=== PATIENT | female | born 1950 | race Hispanic/Latino ===

== ENCOUNTER 2016-09-28 03:17 | Emergency (ER) | payer BC ==
[2016-09-28 03:26] VITALS: BMI 29.1
[2016-09-28 03:35] VITALS: TEMP 98.7
--- NOTE | 2016-09-28 03:42 | ED PDOC ---
Arrival/HPI - General Chief Complaint: Chest Pain Time Seen by Provider: 09/28/16 03:20 - History of Present Illness Narrative History of Present Illness (Text): 09/28/16 04:15 65 year old F w/ Past medical history of anxiety and GERD presents to the emergency depart complaining of chest pain. Pt states pain began ~0230 this morning. Pain described as intense, burning, stabbing sub-xyphoid. Pt reports R- sided jaw pain, which woke pt from sleep, 20-30mins before onset of chest pain. Pain associated w/ lightheadedness, sweating, and nausea but no vomiting. Pain has been intensifying since onset w/ radiation around L-side into back. Pt admits to similar episodes in the past, the last occurring ~1yr ago. Pt has recently her intake of NSAIDs due to an arthritis flair. (Kianna Navarrete) Past Medical History - Provider Review Nursing Documentation Reviewed: Yes - Tetanus Immunization Tetanus Immunization: Unknown - Reproductive Menopause: Yes - Gastrointestinal Hx Gastroesophageal Reflux: Yes - Psychiatric Hx Depression: Yes Hx Emotional Abuse: No Hx Panic Disorder: Yes Hx Physical Abuse: No Hx Substance Use: No - Surgical History Hx Appendectomy: Yes Hx Cholecystectomy: Yes - Anesthesia Hx Anesthesia: Yes Hx Anesthesia Reactions: No Hx Malignant Hyperthermia: No - Suicidal Assessment Feels Threatened In Home Enviroment: No Family/Social History Family/Social History: No Known Family HX Smoking Status: Heavy Smoker > 10 Cigarettes Daily Hx Alcohol Use: No Hx Substance Use: No Allergies/Home Meds Allergies/Adverse Reactions: Allergies erythromycin base Adverse Reaction (Verified 09/28/16 03:26) ANAPHYLAXIS Penicillins Adverse Reaction (Verified 09/28/16 03:26) RASH Review of Systems - Physician Review All systems were reviewed & negative as marked: Yes - Review of Systems Eyes: absent: Vision Changes Respiratory: absent: SOB Physical Exam Temperature: Afebrile Blood Pressure: Hypertensive Pulse: Tachycardic Respiratory Rate: Normal Appearance: Positive for: Non-Toxic Pain Distress: Mild Mental Status: Positive for: Alert and Oriented X 3 - Systems Exam Head: Present: Atraumatic, Normocephalic Pupils: Present: PERRL Extroacular Muscles: Present: EOMI Mouth: Present: Moist Mucous Membranes Respiratory/Chest: Present: Clear to Auscultation, Good Air Exchange, Tender to Palpation (L 4th ICS), Other (pain relived w/ subxyphoid palpation). No: Respiratory Distress, Accessory Muscle Use Cardiovascular: Present: Regular Rate and Rhythm, Normal S1, S2. No: Murmurs Abdomen: Present: Normal Bowel Sounds. No: Tenderness, Distention, Peritoneal Signs Back: Present: Normal Inspection Lower Extremity: Present: Normal Inspection. No: Edema Neurological: Present: GCS=15, Speech Normal Skin: Present: Warm, Dry, Normal Color Psychiatric: Present: Alert, Oriented x 3, Normal Affect, Anxious Medical Decision Making - EKG Interpretation Interpreted by ED Physician: Yes Type: 12 lead EKG ED Course and Treatment: 09/28/16 04:29 65 year old F w/ CP r/o ACS vs gastritis - CBC, CMP, Mg, Urinalysis - CXR - EKG - ASA 325 - Xanax 0.5mg - Protonix 40mg 09/28/16 04:47 Pain subsiding after Xanax and protonix. Discussed the need for serial Troponins to completely r/o ACS. Pt demonstrated understanding but elected to go home and follow up with PMD and drum saw operator. Pt asking for 3days of Xanax to go home with. No listings in the online drug registry. (Kianna Navarrete) 09/28/16 05:16 Seen and examined with resident. 65 y/o F c history of anxiety/GERD p/w chest pain similar to GERD. Symptoms resolved after Xanax and protonix, can't rule out ACS but patient wished to go home and refused further observation. (Toan Lofton) - Lab Interpretations Lab Results: 09/28/16 03:57 09/28/16 03:57 Lab Results 09/28/16 04:35: Urine Color Light yellow, Urine Appearance Clear, Urine pH 6.0, Ur Specific [place] 1.015, Urine Protein Negative, Urine Glucose (UA) Negative, Urine Ketones Negative, Urine Blood Negative, Urine Nitrate Negative, Urine Bilirubin Negative, Urine Urobilinogen 0.2, Ur Leukocyte Esterase Negative 09/28/16 03:57: Sodium 137, Potassium 4.3, Chloride 105, Carbon Dioxide 23, Anion Gap 13, BUN 17, Creatinine 0.8, Est GFR ( Amer) > 60, Est GFR (Non- Af Amer) > 60, Random Glucose 124 H, Calcium 9.3, Magnesium 1.8, Total Bilirubin 0.6, AST 23, ALT 30, Alkaline Phosphatase 81, Lactate Dehydrogenase 347, Total Creatine Kinase 58, Troponin I < 0.01, Total Protein 7.3, Albumin 4.1 , Globulin 3.2, Albumin/Globulin Ratio 1.3 09/28/16 03:57: WBC 8.9, RBC 4.49, Hgb 14.2, Hct 40.5, MCV 90.2, MCH 31.6, MCHC 35.1, RDW 13.6, Plt Count 270, MPV 8.9, Gran % 61.3, Lymph % (Auto) 30.7, [place] % (Auto) 6.3 H, Eos % (Auto) 1.5, Baso % (Auto) 0.2, Gran # 5.48, Lymph # 2.7, Sab[place] # 0.6, Eos # 0.1, Baso # 0.02 - RAD Interpretation Narrative RAD Interpretations (Text): 09/28/16 04:31 CXR no active disease as interpreted by me (Kianna Navarrete) Radiology Orders: 09/28/16 03:42 CHEST PORTABLE [RAD] Stat - EKG Interpretation EKG Interpretation (Text): 09/28/16 04:30 rate 101, NST, no axis rotation or deviation (Kianna Navarrete) - Medication Orders Current Medication Orders: Discontinued Medications Alprazolam (Xanax) 0.5 mg PO STAT STA PRN Reason: Protocol Stop: 09/28/16 04:07 Last Admin: 09/28/16 04:25 Dose: 0.5 mg Aspirin (Aspirin) 325 mg PO STAT STA Stop: 09/28/16 03:43 Last Admin: 09/28/16 04:02 Dose: 325 mg Pantoprazole Sodium (Protonix Inj) 40 mg IVP STAT STA Stop: 09/28/16 04:07 Last Admin: 09/28/16 04:25 Dose: 40 mg Disposition/Present on Arrival - Present on Arrival Any Indicators Present on Arrival: No History of DVT/PE: No History of Uncontrolled Diabetes: No Urinary Catheter: No History of Decub. Ulcer: No History Surgical Site Infection Following: None - Disposition Have Diagnosis and Disposition been Completed?: Yes Disposition Time: 04:36 - Disposition Diagnosis: Chest pain Disposition: HOME/ ROUTINE Condition: STABLE Discharge Instructions (ExitCare): Chest Pain (ED) Prescriptions: Alprazolam [Xanax] 0.5 mg PO Q12H #3 tab
[2016-09-28 04:00] LABS: ADD MANUAL DIFF? NO
[2016-09-28 04:02] LABS: BASO # 0.02 K/mm3 (0.0-2.0); BASO % 0.2 % (0.0-3.0); EOS # 0.1 (0.0-0.7); EOS % 1.5 % (1.5-5.0); GRAN # 5.48 (1.4-6.5); GRAN % 61.3 % (50.0-68.0); HEMATOCRIT 40.5 % (36.0-48.0); LYMPH # 2.7 (1.2-3.4); LYMPH % 30.7 % (22.0-35.0); MEAN CELL VOLUME 90.2 fL (80.0-105.0); MEAN CORPUSCULAR HEMOGLOBIN 31.6 pg (25.0-35.0); MEAN CORPUSCULAR HGB CONC 35.1 g/dl (31.0-37.0); MEAN PLATELET VOLUME 8.9 fl (7.0-11.0); MONO # 0.6 (0.1-0.6); MONO % 6.3 % (1.0-6.0); PLATELET COUNT 270 10^3/uL (120.0-450.0); RED CELL DISTRIBUTION WIDTH 13.6 % (11.5-14.5); WHITE BLOOD COUNT 8.9 10^3/ul (4.5-11.0)
[2016-09-28 04:12] LABS: ALB/GLOB RATIO 1.3 (1.1-1.8); ALKALINE PHOSPHATASE 81 U/L (38-133); ALT/SGPT 30 U/L (7-56); AST/SGOT 23 U/L (15-39); BILIRUBIN,TOTAL 0.6 mg/dL (0.2-1.3); BLOOD UREA NITROGEN 17 mg/dL (7-21); CALCIUM 9.3 mg/dL (8.4-10.5); CARBON DIOXIDE 23 mmol/L (21-33); CHLORIDE 105 mmol/L (98-107); GFR AFRICAN-AMERICAN > 60; GLUCOSE,RANDOM 124 mg/dL (70-110); POTASSIUM 4.3 mmol/L (3.6-5.0); SODIUM 137 mmol/L (132-148); TOTAL PROTEIN 7.3 g/dL (5.8-8.3)
[2016-09-28 04:13] LABS: MAGNESIUM 1.8 mg/dL (1.7-2.2)
[2016-09-28 04:27] LABS: TROPONIN I < 0.01 ng/mL
[2016-09-28 04:39] LABS: URINE BILIRUBIN NEGATIVE (NEGATIVE); URINE BLOOD NEGATIVE (NEGATIVE); URINE GLUCOSE (UA) NEGATIVE (NEGATIVE); URINE KETONE NEGATIVE (NEGATIVE); URINE LEUKOCYTE ESTERASE NEGATIVE Leu/uL (NEGATIVE); URINE PROTEIN NEGATIVE mg/dL (<30 mg/dL); URINE UROBILINOGEN 0.2 E.U./dL (<1 E.U./dL)
[2016-09-28 04:40] LABS: URINE APPEARANCE CLEAR (CLEAR); URINE COLOR LIGHT YELLOW (YELLOW)
[2016-09-28 05:06] VITALS: BP 144/82; PULSE 87; RESP 17; O2SAT 96
--- NOTE | 2016-09-28 15:48 | CARD ---
APPROVED REPORT EKG Measurement Heart [id number] [place] [id number] [id number] <Conclusion> Sinus tachycardia Possible Left atrial enlargement Possible Inferior infarct, age undetermined Abnormal ECG
--- NOTE | 2016-09-29 08:11 | RAD ---
HISTORY: chest pain COMPARISON: No prior. FINDINGS: LUNGS: No active pulmonary disease. PLEURA: No significant pleural effusion identified, no pneumothorax apparent. CARDIOVASCULAR: Normal. OSSEOUS STRUCTURES: No significant abnormalities. VISUALIZED UPPER ABDOMEN: Normal. OTHER FINDINGS: None. IMPRESSION: No active disease.
== END 2016-09-28 04:58 | disposition home or self-care (01) ==
LOC: ED 03:17
DX: R07.9 Chest pain, unspecified (principal)
CPT/HCPCS: 71010; 80053; 81003; 82550; 83615; 83735; 84484; 85025; 93005; 96374; 99284; C9113

== ENCOUNTER 2018-04-15 06:30 | Day surgery (SDC) | payer MEDICARE ==
[2018-04-13 17:05] VITALS: BMI 31.4
[2018-04-15] MEDS ORDERED: Propofol 10 mg/ml Inj (20 ML) ONE (08:07)
[2018-04-15] MEDS ORDERED: Sodium Chloride 0.9% 1,000 ML IV SCH (09:15)
[2018-04-15 09:43] VITALS: BP 139/85; PULSE 82; RESP 16; TEMP 98; O2SAT 99
== END 2018-04-15 10:43 | disposition home or self-care (01) ==
LOC: ENDO 06:30
PROVIDERS: ATTEND Specialist
DX: Z12.11 Encounter for screening for malignant neoplasm of colon (principal); D12.3 Benign neoplasm of transverse colon; K26.9 Duodenal ulcer, unspecified as acute or chronic, without hemorrhage or perforation; K31.7 Polyp of stomach and duodenum; K21.9 Gastro-esophageal reflux disease without esophagitis; K44.9 Diaphragmatic hernia without obstruction or gangrene; K57.30 Diverticulosis of large intestine without perforation or abscess without bleeding; K64.8 Other hemorrhoids; K29.50 Unspecified chronic gastritis without bleeding

== ENCOUNTER 2018-05-14 04:09 | Inpatient (IN) | payer MEDICARE ==
[2018-05-14] MEDS ORDERED: Pantoprazole 40 MG in Sodium Chloride 0.9% 100 ML IV STA (04:43)
--- NOTE | 2018-05-14 04:43 | ED PDOC ---
Arrival/HPI - General Chief Complaint: Abdominal Pain Time Seen by Provider: 05/14/18 04:35 Historian: Patient - History of Present Illness Narrative History of Present Illness (Text): 05/14/18 04:42 Radha A Friend is a 67 year old female, whose past medical history includes GERD, peptic ulcer disease, and cholecystectomy, who presents to the emergency department complaining of abdominal pain. Patient states she woke up tonight with RUQ radiating to chest, back, and arms. Patient also reports she has been belching frequently throughout the night. Patient notes she has experienced similar episodes in the past, for which she was advised to take Gas-ex by her airplane and engine inspector, however patient denies any significant improvement. Patient recently underwent endoscopy and colonoscopy and had 2 polyps removed. Patient notes symptoms are currently improving. Patient denies any fever, chills, chest pain, shortness of breath, nausea, vomiting, diarrhea, urinary symptoms, headache, dizziness, or any other complaints. PMD: Dr. Rain Symptom Onset: Gradual Symptom Course: Unchanged Activities at Onset: Light Context: Home Past Medical History - Provider Review Nursing Documentation Reviewed: Yes - Tetanus Immunization Tetanus Immunization: Unknown - Cardiac Hx Pacemaker: No - Hematological/Oncological Hx Blood Transfusions: No Hx Blood Transfusion Reaction: No - Musculoskeletal/Rheumatological Hx Musculoskeletal Disorders: Yes (RIGHT KNEE) Hx Spinal Stenosis: Yes - Gastrointestinal Hx Gastrointestinal Disorders: Yes Hx Gall Bladder Disease: Yes Hx Gastroesophageal Reflux: Yes - Psychiatric Hx Psychophysiologic Disorder: Yes Hx Emotional Abuse: No Hx Panic Disorder: Yes Hx Physical Abuse: No Hx Substance Use: No - Surgical History Hx Appendectomy: Yes Hx Cholecystectomy: Yes - Anesthesia Hx Anesthesia Reactions: No Hx Malignant Hyperthermia: No - Suicidal Assessment Feels Threatened In Home Enviroment: No Family/Social History - Physician Review Nursing Documentation Reviewed: Yes Family/Social History: Unknown Family HX Smoking Status: Heavy Smoker > 10 Cigarettes Daily Hx Alcohol Use: Yes (RARE SOCIAL OCCASSIONS) Frequency of alcohol use: Socially Hx Substance Use: No Allergies/Home Meds Allergies/Adverse Reactions: Allergies doxycycline [From Vibramycin] Allergy (Severe, Verified 04/13/18 16:49) IMPENDING DOOM erythromycin base Allergy (Severe, Verified 04/13/18 16:49) ANAPHYLAXIS FISH Allergy (Severe, Verified 04/13/18 16:49) SWELLING Penicillins Adverse Reaction (Verified 09/28/16 03:26) RASH Home Medications: Home Meds Medication Instructions Recorded Confirmed Alprazolam [Xanax] 0.5 mg PO TID 09/19/17 05/14/18 Omeprazole 40 mg PO DAILY 04/15/18 05/14/18 Simethicone [Gas-X Extra Strength] 125 mg PO PRN PRN 05/14/18 05/14/18 Aspirin [Ecotrin] 81 mg PO DAILY 05/15/18 05/15/18 Atorvastatin [Lipitor] 40 mg PO ACD 05/15/18 05/15/18 Clopidogrel [Plavix] 75 mg PO DAILY 05/15/18 05/15/18 Lisinopril [Zestril] 2.5 mg PO DAILY 05/15/18 05/15/18 Pantoprazole Sodium [Protonix] 40 mg PO ACB 05/15/18 05/15/18 Review of Systems - Physician Review All systems were reviewed & negative as marked: Yes - Review of Systems Constitutional: Normal. absent: Fevers Eyes: Normal ENT: Normal Respiratory: Normal Cardiovascular: Normal Gastrointestinal: Normal Genitourinary Female: Normal Musculoskeletal: Normal Skin: Normal Neurological: Normal Endocrine: Normal Hemo/Lymphatic: Normal Psychiatric: Normal Physical Exam Vital Signs Reviewed: Yes Vital Signs Temp Pulse Resp BP Pulse Ox 05/14/18 04:36 97.4 F L 100 H 18 133/79 98 Temperature: Afebrile Blood Pressure: Normal Pulse: Regular Respiratory Rate: Normal Appearance: Positive for: Well-Appearing, Non-Toxic, Comfortable Pain Distress: None Mental Status: Positive for: Alert and Oriented X 3 - Systems Exam Head: Present: Atraumatic, Normocephalic Pupils: Present: PERRL Extroacular Muscles: Present: EOMI Conjunctiva: Present: Normal Mouth: Present: Moist Mucous Membranes Neck: Present: Normal Range of Motion Respiratory/Chest: Present: Clear to Auscultation, Good Air Exchange. No: Respiratory Distress, Accessory Muscle Use Cardiovascular: Present: Regular Rate and Rhythm, Normal S1, S2. No: Murmurs Abdomen: No: Tenderness, Distention, Peritoneal Signs Back: Present: Normal Inspection Upper Extremity: Present: Normal Inspection. No: Cyanosis, Edema Lower Extremity: Present: Normal Inspection. No: Edema Neurological: Present: GCS=15, CN II-XII Intact, Speech Normal Skin: Present: Warm, Dry, Normal Color. No: Rashes Psychiatric: Present: Alert, Oriented x 3, Normal Insight, Normal Concentration Medical Decision Making ED Course and Treatment: 05/14/18 04:42 Impression: 67 year old female complaining of RUQ pain radiating to chest and back. Plan: -- EKG -- CXR -- Labs, cardiac enzymes, amylase, lipase -- UA -- IV fluids -- Pepcid -- Reassess and disposition Prior Visits: Notes and results from previous visits were reviewed. Progress Notes: Reviewed EKG, NSR at 100 bpm. Ischemic changes in leads V2, V3, V4. 05/14/18 04:58 CXR reviewed, shows no acute processes. 05/14/18 05:43 Labs reviewed, troponin: 1.13. Aspirin and Nitroglycerin ordered. 05/14/18 05:[address] Powers, covering for Dr. Beckham, who is aware and agrees with plan. Requests dissection protocol CTA prior to taking pt to company laborer. 05/14/18 05:[address] Rain, who is aware and agrees with plan. Accepts pt in to her service. - Transfer of Care Patient signed out to Dr:: reyes ct result icu and iv heparin - Scribe Statement The provider has reviewed the documentation as recorded by the Ramona Simmons Provider Scribe Attestation: All medical record entries made by the Scribe were at my direction and personally dictated by me. I have reviewed the chart and agree that the record accurately reflects my personal performance of the history, physical exam, medical decision making, and the department course for this patient. I have also personally directed, reviewed, and agree with the discharge instructions and disposition. Disposition/Present on Arrival - Present on Arrival Any Indicators Present on Arrival: No History of DVT/PE: No History of Uncontrolled Diabetes: No Urinary Catheter: No History of Decub. Ulcer: No History Surgical Site Infection Following: None - Disposition Have Diagnosis and Disposition been Completed?: Yes Diagnosis: Non-Q wave myocardial infarction Disposition: HOSPITALIZED Disposition Time: 07:00 Condition: FAIR
[2018-05-14 05:01] LABS: BASO # 0.02 K/mm3 (0.0-2.0); BASO % 0.2 % (0.0-3.0); EOS # 0.1 (0.0-0.7); EOS % 0.6 % (1.5-5.0); GRAN # 8.72 (1.4-6.5); GRAN % 77.7 % (50.0-68.0); LYMPH # 1.7 (1.2-3.4); LYMPH % 15.3 % (22.0-35.0); MEAN CORPUSCULAR HEMOGLOBIN 31.2 pg (25.0-35.0); MEAN CORPUSCULAR HGB CONC 33.9 g/dl (31.0-37.0); MEAN PLATELET VOLUME 9.1 fl (7.0-11.0); MONO # 0.7 (0.1-0.6); MONO % 6.2 % (1.0-6.0); RBC 4.49 10^6/uL (3.5-6.1); RED CELL DISTRIBUTION WIDTH 12.9 % (11.5-14.5); WHITE BLOOD COUNT 11.2 10^3/uL (4.5-11.0)
[2018-05-14 05:09] LABS: ALB/GLOB RATIO 1.4 (1.1-1.8); ALBUMIN 4.5 g/dL (3.0-4.8); ALT/SGPT 30 U/L (7-56); AMYLASE 74 U/L (35-125); AST/SGOT 42 U/L (14-36); BLOOD UREA NITROGEN 14 mg/dL (7-21); CALCIUM 9.4 mg/dL (8.4-10.5); GFR NON-AFRICAN AMERICAN > 60; LIPASE 215 U/L (23-300)
[2018-05-14 05:18] LABS: INR 0.99; PARTIAL THROMBOPLASTIN TIME 28.4 Seconds (25.1-36.5); PROTHROMBIN TIME 11.3 SECONDS (9.4-12.5)
[2018-05-14] MEDS ORDERED: Nitroglycerin 2% Ointment Foilpak UD TOP STA (05:40)
[2018-05-14 05:41] LABS: CK MB% 4.9 % (2.5-3.0); CK-MB 11.5 ng/mL (0.0-3.6); TROPONIN I 1.13 ng/mL
[2018-05-14 05:46] LABS: URINE BILIRUBIN NEGATIVE (NEGATIVE); URINE BLOOD NEGATIVE (NEGATIVE); URINE GLUCOSE (UA) NEGATIVE (NEGATIVE); URINE LEUKOCYTE ESTERASE NEGATIVE Leu/uL (NEGATIVE); URINE PROTEIN NEGATIVE mg/dL (<30 mg/dL); URINE UROBILINOGEN 0.2 E.U./dL (<1 E.U./dL)
[2018-05-14 05:50] LABS: URINE APPEARANCE CLEAR (CLEAR); URINE COLOR YELLOW (YELLOW)
[2018-05-14] MEDS ORDERED: Aspirin 325 mg EC Tablets PO STA (05:51)
[2018-05-14] MEDS ORDERED: Sodium Chloride 0.9% 1,000 ML IV SCH ×2 (06:15→11:00)
--- NOTE | 2018-05-14 07:02 | ED PDOC ---
Physical Exam Vital Signs Reviewed: Yes Vital Signs Temp Pulse Resp BP Pulse Ox 05/14/18 05:45 94 H 16 129/76 97 05/14/18 04:36 97.4 F L 100 H 18 133/79 98 Temperature: Afebrile Blood Pressure: Normal Pulse: Tachycardic Respiratory Rate: Normal Mental Status: Positive for: Alert and Oriented X 3 Medical Decision Making ED Course and Treatment: 05/14/18 06:[address] Cosby with CT a/p pending. She had radiating back pain with associated belching resulting elevated troponins. Dr. Powers(cardiology) will perform cardiac cath today after discussing the case with previous Emergency department provider. Consult to ICU once CT results are back. She will have heparin started. 05/14/18 07:[address] Bennett(intensvist) who accepts patient into ICU and will endorse patient to incoming team. - Lab Interpretations Lab Results: PT 11.3 SECONDS (9.4-12.5) 05/14/18 04:49 INR 0.99 05/14/18 04:49 APTT 28.4 Seconds (25.1-36.5) 05/14/18 04:49 Troponin I 1.13 ng/mL H* D 05/14/18 04:49 Total Bilirubin 0.5 mg/dL (0.2-1.3) 05/14/18 04:49 AST 42 U/L (14-36) H 05/14/18 04:49 ALT 30 U/L (7-56) 05/14/18 04:49 Alkaline Phosphatase 114 U/L (38-126) 05/14/18 04:49 Total Protein 7.8 g/dL (5.8-8.3) 05/14/18 04:49 Albumin 4.5 g/dL (3.0-4.8) 05/14/18 04:49 Globulin 3.3 gm/dL 05/14/18 04:49 Albumin/Globulin Ratio 1.4 (1.1-1.8) 05/14/18 04:49 Amylase 74 U/L (35-125) 05/14/18 04:49 Lipase 215 U/L (23-300) 05/14/18 04:49 Urine Color Yellow (YELLOW) 05/14/18 05:28 Urine Appearance Clear (CLEAR) 05/14/18 05:28 Urine pH 6.0 (4.7-8.0) 05/14/18 05:28 Ur Specific [place] 1.025 (1.005-1.035) 05/14/18 05:28 Urine Protein Negative mg/dL (<30 mg/dL) 05/14/18 05:28 Urine Glucose (UA) Negative mg/dL (NEGATIVE) 05/14/18 05:28 Urine Ketones Negative mg/dL (NEGATIVE) 05/14/18 05:28 Urine Blood Negative (NEGATIVE) 05/14/18 05:28 Urine Nitrate Negative (NEGATIVE) 05/14/18 05:28 Urine Bilirubin Negative (NEGATIVE) 05/14/18 05:28 Urine Urobilinogen 0.2 E.U./dL (<1 E.U./dL) 05/14/18 05:28 Ur Leukocyte Esterase Negative Ernesto/uL (NEGATIVE) 05/14/18 05:28 I have reviewed the lab results: Yes - RAD Interpretation Narrative RAD Interpretations (Text): 05/14/18 08:30 CTA of Chest Abdomen and Pelvis reviewed by radiologist, shows: FINDINGS: Mild cardiomegaly. Normal enhancement of the main pulmonary artery and right and left pulmonary arteries. Normal enhancement of the bilateral peripheral pulmonary arteries. There is no demonstrated pulmonary embolism. Normal thoracic aorta and visualized great vessels. There is no demonstrated aortic dissection. Normal pericardium. Normal mediastinum. Normal hilar regions. Normal visualized trachea and bronchi. Bilateral basilar atelectatic pulmonary changes The remaining lungs are well expanded. Normal remaining pulmonary parenchyma. Normal pleura. Normal chest wall structures. Moderate diffuse spondylosis. Moderate sliding hiatal hernia. Normal liver. Cholecystectomy and nondilated extrahepatic biliary system. Normal spleen. Normal pancreas. Diffuse nodularity of the left adrenal gland. Normal size of the right kidney. There is no right renal mass. There are no right renal calculi. There is no right hydronephrosis. Normal visualized right ureter. Normal size of the left kidney. There is no left renal mass. There are no left renal calculi. There is no left hydronephrosis. Normal visualized left ureter. Normal visualized stomach. Normal small intestine. Uncomplicated diverticulosis of the colon. The appendix is visualized and appears normal. There is no demonstrated peritoneal fluid. Calcified atheromatous plaques in abdominal aorta. Normal inferior vena cava. Normal retroperitoneum. Normal urinary bladder. There is no pelvic mass lesion or lymphadenopathy. There is no pelvic fluid. 1.3 cm benign chronic sebaceous cyst of the anterior abdominal wall. Normal osseous structures. IMPRESSION: No demonstrated pulmonary embolism or arterial dissection. Moderate sliding hiatal hernia. Uncomplicated diverticulosis. Radiology Orders: 05/14/18 04:43 CHEST PORTABLE [RAD] Stat 05/14/18 05:58 ANGIOGRAPHY DISECTION PROTOCOL [CT] Stat Supervisor [employer]: Radiologist - Medication Orders Current Medication Orders: Sodium Chloride (Sodium Chloride 0.9%) 1,000 mls @ 80 mls/hr IV .[id number] MELISSA Last Admin: 05/14/18 06:22 Dose: 80 mls/hr eMAR Start Stop Document 05/14/18 06:22 CNR (Rec: 05/14/18 06:22 CNR [id number]) Intravenous Solution Start Date 05/14/18 Start Time 06:22 Discontinued Medications Aspirin (Ecotrin) 325 mg PO STAT STA Stop: 05/14/18 05:52 Last Admin: 05/14/18 06:04 Dose: 325 mg Famotidine (Pepcid) 20 mg IVP STAT STA Stop: 05/14/18 04:44 Last Admin: 05/14/18 05:01 Dose: 20 mg IVP Administration Document 05/14/18 05:01 CNR (Rec: 05/14/18 05:01 CNR [id number]) Charges for Administration # of IVP Administrations 1 Pantoprazole Sodium 40 mg/ (Sodium Chloride) 100 mls @ 400 mls/hr IV STAT STA Stop: 05/14/18 04:57 Last Admin: 05/14/18 04:59 Dose: 400 mls/hr eMAR Start Stop Document 05/14/18 04:59 CNR (Rec: 05/14/18 05:01 CNR [id number]) Intravenous Solution Start Date 05/14/18 Start Time 05:00 End Date 05/14/18 End time 05:15 Total Infusion Time 15 Lorazepam (Ativan) 0.5 mg PO ONCE ONE; Protocol Stop: 05/14/18 06:29 Last Admin: 05/14/18 06:36 Dose: 0.5 mg Nitroglycerin (Nitro-Bid 2% Oint) 1 ea TOP ONCE STA Stop: 05/14/18 05:41 Last Admin: 05/14/18 06:03 Dose: 1 ea Disposition/Present on Arrival - Present on Arrival History of DVT/PE: No History of Uncontrolled Diabetes: No Urinary Catheter: No History of Decub. Ulcer: No History Surgical Site Infection Following: None - Disposition
[2018-05-14] MEDS ORDERED: Heparin25000 units/250ml 1/2NS 25,000 UNITS/250 ML BAG IV SCH ×2 (07:15→08:45)
--- NOTE | 2018-05-14 09:27 | RAD ---
Date of service: 05/14/2018 HISTORY: epigastric pain COMPARISON: 09/28/2016 FINDINGS: LUNGS: No active pulmonary disease. PLEURA: No significant pleural effusion identified, no pneumothorax apparent. CARDIOVASCULAR: No aortic atherosclerotic calcification present. Normal cardiac size. No pulmonary vascular congestion. OSSEOUS STRUCTURES: No significant abnormalities. VISUALIZED UPPER ABDOMEN: Normal. OTHER FINDINGS: None. IMPRESSION: No active disease.
--- NOTE | 2018-05-14 09:55 | CT ---
PROCEDURE: CT Angiography Chest, Abdomen and Pelvis with and without intravenous contrast HISTORY: r/o dissection COMPARISON: None. TECHNIQUE: Contiguous axial images of the chest, abdomen and pelvis were obtained in the phase of aortic enhancement. A noncontrast enhanced CT of the chest was also obtained to evaluate for possible intramural thrombus. Coronal and sagittal reformats were generated. IV dose administered: 150 cc of Omni 350 Radiation dose: Total exam DLP = 1302.86 mGy-cm. This CT exam was performed using one or more of the following dose reduction techniques: Automated exposure control, adjustment of the mA and/or kV according to patient size, and/or use of iterative reconstruction technique. FINDINGS: CT ANGIOGRAPHY OF THE CHEST WITH & WITHOUT CONTRAST: ABDOMINAL AORTA:: No evidence of aortic dissection or aneurysm no evidence of pulmonary embolus AORTA (CHEST AND ABDOMEN): The thoracic and abdominal aorta are unremarkable, without aneurysm, dissection or rupture. No intramural thrombus identified in the thoracic aorta on the non-contrast ct of the chest. The celiac axis, superior mesenteric artery, inferior mesenteric artery and the renal arteries are widely patent. The pelvic arteries are unremarkable. LUNGS: Clear. No nodule, mass or consolidation. MEDIASTINUM: Unremarkable. Normal caliber aorta and pulmonary arterial trunk. No aortic dissection. Normal size heart. LYMPH NODES: Unremarkable. PLEURA: Unremarkable. No pneumothorax. No pleural fluid. BONES: Unremarkable. OTHER FINDINGS: None. CT ANGIOGRAPHY OF THE ABDOMEN AND PELVIS WITH CONTRAST: LIVER: Unremarkable. No gross lesion or ductal dilatation. GALLBLADDER AND BILE DUCTS: Gallbladder removed PANCREAS: Unremarkable. No gross lesion or ductal dilatation. SPLEEN: Unremarkable. ADRENALS: Unremarkable. No mass. KIDNEYS AND URETERS: Unremarkable. No hydronephrosis. No solid mass. VASCULATURE: Unremarkable. No aortic aneurysm. Aortic and iliac calcifications are seen STOMACH AND BOWEL: Unremarkable. No obstruction. No gross mural thickening. Mild diverticulosis of the sigmoid colon APPENDIX: Normal appendix. PERITONEUM: Unremarkable. No free fluid. No free air. LYMPH NODES: Unremarkable. No enlarged lymph nodes. BLADDER: Unremarkable. REPRODUCTIVE: Unremarkable. BONES: Multilevel degenerative changes OTHER FINDINGS: The report concurs with the preliminary [facility] report IMPRESSION: No evidence of aortic dissection. No evidence of pulmonary embolism
--- NOTE | 2018-05-14 10:20 | CP.PCM.CON ---
<Jesse Benitez - Last Filed: 05/14/18 11:01> History of Present Illness - History of Present Illness History of Present Illness: Jesse Benitez Internal Medicine Resident- Consult Note on Behalf of Critical Care Team Subjective: CC: Abdominal Pain HPI: Patient is a 67 year old female with a past medical history of hypertension, hyperlipidemia, gastric polyps, colonic polyps, hiatal hernia, diverticulosis, internal hemorrhoids, duodenal ulcers, and panic attacks who was admitted for evaluation and treatment of abdominal pain which began without a provoking event. The abdominal pain was characterized as being a dull aching sensation, which originated and remained localized in the epigastric region. The pain was quantified as a 10/10. Denied associated nausea and vomiting. Patient was found to have positive troponins in the emergency department and was diagnosed with an NSTEMI. Patient felt anxious and experienced chest pressure after learning of diagnosis. ICU team was consulted for further management. Patient seen and examined at bedside. No acute events since admission. Patient states abdominal pain has significantly improved relative to baseline. States chest pressure has resolved. Denies fever, chills, SOB at rest/exertion, nausea, vomiting, diarrhea , constipation, and urinary symptoms. 12 point ROS negative except as indicated in HPI Past medical history: hypertension, hyperlipidemia, gastric polyps, colonic polyps, hiatal hernia, diverticulosis, internal hemorrhoids, duodenal ulcers, and panic attacks Past surgical history: cholecystectomy, appendectomy Allergies: doxycycline, erythromycin, FISH, penicillins Social History: social ETOH use, admits to active tobacco use 1ppd for approximately 45 years, denies illicit drug use Family Hx: mother- normo pressure hydrocephalus, diabetes, htn; father- MO at 51 years old Medications: please see MAR Physical Examination: - Constitutional Appears: No acute distress - Head Exam Head Exam: ATRAUMATIC, NORMAL INSPECTION, NORMOCEPHALIC - Eye Exam Eye Exam: PERRL - ENT Exam ENT Exam: Mucous Membranes Moist - Respiratory Exam Respiratory Exam: CTA bilaterally - Cardiovascular Exam Cardiovascular Exam: RRR, REGULAR RHYTHM - GI/Abdominal Exam GI & Abdominal Exam: Normal Bowel Sounds, Soft. absent: Tenderness - Extremities Exam Extremities exam: no clubbing, no cyanosis - Neurological Exam Neurological exam: AAO x 3, responds to verbal stimuli, follows commands, moves extremities past midline - Skin Skin Exam: Dry, Intact Assessment and Plan: Patient is a 67 year old female with a past medical history of hypertension, hyperlipidemia, gastric polyps, colonic polyps, hiatal hernia, peptic ulcer disease, and panic attacks who was admitted for evaluation and treatment of abdominal pain. Found to have NSTEMI. Transferred to ICU for further management. Neuro: - AAO x 3 Cardiovascular: NSTEMI, Hx of HTN, Hx of HPL - 05/14/2017 EKG- sinus rhythm with PACs with aberrant conduction, possible left atrial enlargement HR 98bpm, QTc 474ms - 05/14/2017 CT Angiography Chest, Abdomen and Pelvis with and without intravenous contrast-No evidence of aortic dissection. No evidence of pulmonary embolism - scheduled for cardiac catherization with Dr. Powers on 05/14/2017 - Continue heparin drip - increase IVF NS to 200cc/hr due to contrast load from CTA and expected contrast use during cardiac catherization - N acteylcysteine 600ml x 1 for renal protection - keep MAP > 65 Pulm: Active Tobacco Abuse - tobacco cessation advised - keep SaO2 > 90% GI Abdominal Pain, Hx of gastric polyps, colonic polyps, hiatal hernia, diverticul osis, internal hemorrhoids, duodenal ulcers - improving - no acute intervention - protonix 40 IV daily for prophylaxis Heme DVT PPx - on heparin drip Patient case discussed with and plan approved by attending physician, Dr. Celi Mcmullen. Past Patient History - Tetanus Immunizations Tetanus Immunization: Unknown - Past Social History Smoking Status: Heavy Smoker > 10 Cigarettes Daily - CARDIAC Hx Pacemaker: No - HEMATOLOGICAL/ONCOLOGICAL Hx Blood Transfusions: No Hx Blood Transfusion Reaction: No - MUSCULOSKELETAL/RHEUMATOLOGICAL Hx Musculoskeletal Disorders: Yes (RIGHT KNEE) Hx Spinal Stenosis: Yes - GASTROINTESTINAL Hx Gastrointestinal Disorders: Yes Hx Gall Bladder Disease: Yes Hx Gastroesophageal Reflux: Yes - PSYCHIATRIC Hx Psychophysiologic Disorder: Yes Hx Emotional Abuse: No Hx Panic Symptoms: Yes Hx Physical Abuse: No Hx Substance Use: No - SURGICAL HISTORY Hx Appendectomy: Yes Hx Cholecystectomy: Yes - ANESTHESIA Hx Anesthesia Reactions: No Hx Malignant Hyperthermia: No Meds Allergies/Adverse Reactions: Allergies Allergy/AdvReac Type Severity Reaction Status Date / Time doxycycline [From Vibramycin] Allergy Severe IMPENDING Verified 04/13/18 16:49 DOOM erythromycin base Allergy Severe ANAPHYLAXIS Verified 04/13/18 16:49 FISH Allergy Severe SWELLING Verified 04/13/18 16:49 Penicillins AdvReac RASH Verified 09/28/16 03:26 - Medications Medications: Current Medications Sodium Chloride (Sodium Chloride 0.9%) 1,000 mls @ 80 mls/hr IV .[id number] REPLACED BY [facility] Last Admin: 05/14/18 06:22 Dose: 80 mls/hr Heparin Sodium/Sodium Chloride (Heparin 28281 Units/250ml 1/2 Normal Saline) 25,000 units in 250 mls @ 10.396 mls/hr IV .Q24H REPLACED BY [facility]; Protocol Last Admin: 05/14/18 08:49 Dose: 12 units/kg/hr, 10.396 mls/hr Results - Vital Signs Recent Vital Signs: Last Vital Signs Temp 98 F 05/14/18 08:53 Pulse 80 05/14/18 08:53 Resp 18 05/14/18 08:53 BP 128/77 05/14/18 08:53 Pulse Ox 97 05/14/18 08:53 - Labs Result Diagrams: 05/14/18 04:49 05/14/18 04:49 Labs: Laboratory Results - last 24 hr 05/14/18 05/14/18 05/14/18 04:49 04:49 04:49 WBC 11.2 H RBC 4.49 Hgb 14.0 Hct 41.3 MCV 92.0 MCH 31.2 MCHC 33.9 RDW 12.9 Plt Count 310 MPV 9.1 Gran % 77.7 H Lymph % (Auto) 15.3 L [place] % (Auto) 6.2 H Eos % (Auto) 0.6 L Baso % (Auto) 0.2 Gran # 8.72 H Lymph # (Auto) 1.7 [place] # (Auto) 0.7 H Eos # (Auto) 0.1 Baso # (Auto) 0.02 PT 11.3 INR 0.99 APTT 28.4 Sodium 136 Potassium 4.1 Chloride 105 Carbon Dioxide 22 Anion Gap 13 BUN 14 Creatinine 0.7 Est GFR ( Amer) > 60 Est GFR (Non-Af Amer) > 60 Random Glucose 179 H Calcium 9.4 Total Bilirubin 0.5 AST 42 H ALT 30 Alkaline Phosphatase 114 Lactate Dehydrogenase 539 Total Creatine Kinase 236 H CK-MB (CK-2) 11.5 H CK-MB (CK-2) % 4.9 H Troponin I 1.13 H* D Total Protein 7.8 Albumin 4.5 Globulin 3.3 Albumin/Globulin Ratio 1.4 Amylase 74 Lipase 215 Urine Color Urine Appearance Urine pH Ur Specific [place] Urine Protein Urine Glucose (UA) Urine Ketones Urine Blood Urine Nitrate Urine Bilirubin Urine Urobilinogen Ur Leukocyte Esterase 05/14/18 05:28 WBC RBC Hgb Hct MCV MCH MCHC RDW Plt Count MPV Gran % Lymph % (Auto) [place] % (Auto) Eos % (Auto) Baso % (Auto) Gran # Lymph # (Auto) [place] # (Auto) Eos # (Auto) Baso # (Auto) PT INR APTT Sodium Potassium Chloride Carbon Dioxide Anion Gap BUN Creatinine Est GFR ( Amer) Est GFR (Non-Af Amer) Random Glucose Calcium Total Bilirubin AST ALT Alkaline Phosphatase Lactate Dehydrogenase Total Creatine Kinase CK-MB (CK-2) CK-MB (CK-2) % Troponin I Total Protein Albumin Globulin Albumin/Globulin Ratio Amylase Lipase Urine Color Yellow Urine Appearance Clear Urine pH 6.0 Ur Specific [place] 1.025 Urine Protein Negative Urine Glucose (UA) Negative Urine Ketones Negative Urine Blood Negative Urine Nitrate Negative Urine Bilirubin Negative Urine Urobilinogen 0.2 Ur Leukocyte Esterase Negative <Lenine Mcmullen - Last Filed: 05/14/18 16:40> Meds - Medications Medications: Current Medications Alprazolam (Xanax) 0.5 mg PO TID PRN; Protocol PRN Reason: Anxiety Aspirin (Ecotrin) 81 mg PO DAILY REPLACED BY [facility] Atorvastatin Calcium (Lipitor) 40 mg PO DIN REPLACED BY [facility] Clopidogrel Bisulfate (Plavix) 75 mg PO DAILY REPLACED BY [facility] Sodium Chloride (Sodium Chloride 0.9%) 1,000 mls @ 100 mls/hr IV .Q10H REPLACED BY [facility] Last Admin: 05/14/18 15:24 Dose: 100 mls/hr Lisinopril (Zestril) 2.5 mg PO DAILY REPLACED BY [facility] Metoprolol Tartrate (Lopressor) 25 mg PO BID REPLACED BY [facility] Nicotine (Nicoderm Cq) 1 patch TD DAILY REPLACED BY [facility] Last Admin: 05/14/18 15:23 Dose: 1 patch Pantoprazole Sodium (Protonix Ec Tab) 40 mg PO ACB REPLACED BY [facility] Results - Vital Signs Recent Vital Signs: Last Vital Signs Temp 97.9 F 05/14/18 15:01 Pulse 96 H 05/14/18 15:16 Resp 20 05/14/18 15:16 BP 129/80 05/14/18 15:16 Pulse Ox 94 L 05/14/18 15:16 - Labs Result Diagrams: 05/14/18 04:49 05/14/18 04:49 Labs: Laboratory Results - last 24 hr 05/14/18 05/14/18 05/14/18 04:49 04:49 04:49 WBC 11.2 H RBC 4.49 Hgb 14.0 Hct 41.3 MCV 92.0 MCH 31.2 MCHC 33.9 RDW 12.9 Plt Count 310 MPV 9.1 Gran % 77.7 H Lymph % (Auto) 15.3 L [place] % (Auto) 6.2 H Eos % (Auto) 0.6 L Baso % (Auto) 0.2 Gran # 8.72 H Lymph # (Auto) 1.7 [place] # (Auto) 0.7 H Eos # (Auto) 0.1 Baso # (Auto) 0.02 PT 11.3 INR 0.99 APTT 28.4 Sodium 136 Potassium 4.1 Chloride 105 Carbon Dioxide 22 Anion Gap 13 BUN 14 Creatinine 0.7 Est GFR ( Amer) > 60 Est GFR (Non-Af Amer) > 60 Random Glucose 179 H Calcium 9.4 Total Bilirubin 0.5 AST 42 H ALT 30 Alkaline Phosphatase 114 Lactate Dehydrogenase 539 Total Creatine Kinase 236 H CK-MB (CK-2) 11.5 H CK-MB (CK-2) % 4.9 H Troponin I 1.13 H* D Total Protein 7.8 Albumin 4.5 Globulin 3.3 Albumin/Globulin Ratio 1.4 Triglycerides Cholesterol LDL Cholesterol Direct HDL Cholesterol Amylase 74 Lipase 215 Urine Color Urine Appearance Urine pH Ur Specific [place] Urine Protein Urine Glucose (UA) Urine Ketones Urine Blood Urine Nitrate Urine Bilirubin Urine Urobilinogen Ur Leukocyte Esterase 05/14/18 05/14/18 04:49 05:28 WBC RBC Hgb Hct MCV MCH MCHC RDW Plt Count MPV Gran % Lymph % (Auto) [place] % (Auto) Eos % (Auto) Baso % (Auto) Gran # Lymph # (Auto) [place] # (Auto) Eos # (Auto) Baso # (Auto) PT INR APTT Sodium Potassium Chloride Carbon Dioxide Anion Gap BUN Creatinine Est GFR ( Amer) Est GFR (Non-Af Amer) Random Glucose Calcium Total Bilirubin AST ALT Alkaline Phosphatase Lactate Dehydrogenase Total Creatine Kinase CK-MB (CK-2) CK-MB (CK-2) % Troponin I Total Protein Albumin Globulin Albumin/Globulin Ratio Triglycerides 137 Cholesterol 228 H LDL Cholesterol Direct 164 H HDL Cholesterol 34 Amylase Lipase Urine Color Yellow Urine Appearance Clear Urine pH 6.0 Ur Specific [place] 1.025 Urine Protein Negative Urine Glucose (UA) Negative Urine Ketones Negative Urine Blood Negative Urine Nitrate Negative Urine Bilirubin Negative Urine Urobilinogen 0.2 Ur Leukocyte Esterase Negative Addendum Addendum: 05/14/18 16:37 Patient seen and examined with housestaff agree with resident note above with the following exceptions/additions 67F w/ hypertension, hyperlipidemia, gastric polyps, colonic polyps, hiatal hernia, peptic ulcer disease, came to ED for abdominal pain found to have NSTEMI. EKG shows sinus rhythm with PACs with aberrant condu. CT Angiography Chest shows no evidence of aortic dissection or PE. Plan for cardiac catherization with Dr. Powers later today. Will hydrate and give mucomyst for renal protetcetion pre-cath since she rec'd contrast with CTA already. Continue heparin drip. Rest of care as above Lennie Mcmullen MD PCC Attending
[2018-05-14] MEDS ORDERED: Acetylcysteine 20% Inhal Soln (4ml) PO STA ×2 (11:00→11:38)
[2018-05-14 11:24] VITALS: BMI 31.8
[2018-05-14 13:11] LABS: HDL CHOLESTEROL 34 mg/dL (29-60)
[2018-05-14] MEDS ORDERED: Iohexol 350 MG/100 ML VIAL ONE (13:18)
[2018-05-14] MEDS ORDERED: Iohexol 350mgl/ml 50 ML ONE (13:18)
[2018-05-14] MEDS ORDERED: Lidocaine 2% Inj (20ml) ONE (13:19)
[2018-05-14] MEDS ORDERED: Phenylephrine 10 mg/ml Inj ONE (13:19)
[2018-05-14 13:22] LABS: LDL CHOLESTEROL 164 mg/dL (0-129)
--- NOTE | 2018-05-14 13:34 | CON ---
DATE: 05/14/2018 GASTROENTEROLOGY CONSULTATION REQUESTING PHYSICIAN: Dr. Powers. REASON FOR CONSULT: I have been asked to see this 67-year-old female, who comes to the hospital with epigastric pain, chest pain, excessive belching. The patient has had chronic reflux-type symptoms for years as well as intermittent chest pain for years. The patient attributed the chest pain to anxiety. She does have an anxiety disorder. Routine blood work in the emergency room showed elevated troponins. The patient was admitted to ICU. The patient had endoscopy about a month ago, which revealed nonerosive gastritis and gastric polyps. She also had a colonoscopy, which revealed a benign tubular adenoma and diverticulosis. The patient had a CT angio in the emergency room, which showed no pulmonary embolism or arterial dissection. She did have a moderate-sized hiatal hernia. PAST MEDICAL HISTORY: Past medical history is notable for gastroesophageal reflux disease, diverticulosis, duodenal ulcers on recent endoscopy, anxiety disorder, degenerative joint disease. PAST SURGICAL HISTORY: Past surgical history is notable for appendectomy, cholecystectomy. SOCIAL HISTORY: The patient smokes between a half pack and a pack of cigarettes per day. She consumes alcohol on a social basis. FAMILY HISTORY: Noncontributory. REVIEW OF SYSTEMS: Fourteen-point review of systems is notable for epigastric pain, chest pain, excessive eructation, and gastroesophageal reflux disease. MEDICATIONS: Medications at home include Xanax 0.5 mg three times a day, Norvasc 10 mg once a day, omeprazole 40 mg once a day, simethicone 3 times a day as needed. PHYSICAL EXAMINATION: GENERAL: Shows a well-developed female, lying in bed, in no acute distress. VITAL SIGNS: Reveal temperature of 98, blood pressure 128/77, heart rate of 80. HEENT: Reveal sclerae to be white. Conjunctivae pink. NECK: Supple. CHEST: Lungs are clear. HEART: Exam reveals a regular rate and rhythm. ABDOMEN: Soft, nontender. EXTREMITIES: Show no edema. LABORATORY DATA: Reveal white blood cell count 11.2, hemoglobin 14. Chemistry reveal troponin of 1.13. Electrolytes are normal. AST 42, ALT 30. IMPRESSION: This is a 67-year-old female, admitted to the hospital with abdominal pain, chest pain, excessive eructation with positive troponins. Recent endoscopy showed several superficial nonbleeding duodenal ulcers. She has been treated with a PPI. These ulcer should have healed at this point. She has a [id number] myocardial infarction. I have discussed this case with Dr. Powers. The patient is to have cardiac cath with placement of a DAYLIN if needed. We will continue proton pump inhibitor. The patient will need to be treated with clopidogrel and aspirin if a DAYLIN is placed. I will follow this patient with you closely for signs of gastrointestinal bleeding. Anthony Greene MD
--- NOTE | 2018-05-14 13:42 | HP ---
DATE OF EXAM: 05/14/2018 HISTORY OF PRESENT ILLNESS: The patient is 67-year-old known to me from risk factors. Patient states she was having epigastric discomfort going towards her chest that It has been going on intermittently for last 3 weeks, but last night she states she could not take this discomfort and pain anymore so she came to emergency room for further evaluation. The patient has stress test done back in 08/2017, it was found to be unremarkable. However, she had positive troponin, so she was admitted in hospital in ICU for further management. The patient denies any fever or chills. No history of nausea or vomiting. Does complain of epigastric discomfort, belching, and heartburn. She has endoscopy done in 03/2018, and she was found to have duodenal ulcer and gastritis, has been on Protonix. PAST MEDICAL HISTORY: She also has significant past medical history of peptic ulcer disease, hypertension, and anxiety disorder. ALLERGIES: SHE IS ALLERGIC TO DOXYCYCLINE, ERYTHROMYCIN, AND PENICILLIN. MEDICATION AT HOME: She is on simethicone, Norvasc 10 mg daily, omeprazole 40 mg daily, and Xanax 0.5 mg 3 times a day. REVIEW OF SYSTEMS: Significant for bilateral knee pain, history of heavy smoking for many, many years, socially drinks. Review of systems significant for epigastric discomfort, heartburn, belching. PHYSICAL EXAMINATION GENERAL: The patient is awake, alert and oriented. Communicative, not in anymore. VITAL SIGNS: She is febrile, pulse 95, respirations 20, and blood pressure 129/79. LUNGS: Bilateral fair airflow. No rhonchi or crackle. HEART: S1 and S2 audible. ABDOMEN: Soft. Nontender. No rebound. No guarding. NEUROLOGIC: The patient is awake, alert, oriented, communicative. LABORATORY DATA: WBC is 11.2, hemoglobin 14, hematocrit 41, platelet 310. PT 11.9, INR 0.99. Chemistry; sodium is 136, potassium 4.1, chloride 105, CO2 22, BUN 14, creatinine 0.7, blood sugar 179, AST 42. CPK 236, troponin 1.13. Urinalysis is unremarkable. ASSESSMENT: 1. Non-ST elevation myocardial infarction. 2. Bilateral knee osteoarthritis. 3. Peptic ulcer disease. 4. Hypertension. 5. Hyperlipidemia. PLAN: Currently, the patient is on Protonix, she is on IV fluid. She is given Plavix. She is being prepped for cardiac cath at 1 o'clock today. Zohra Rain MD
[2018-05-14] MEDS ORDERED: Midazolam 2 MG/2 ML VIAL ONE (14:13)
[2018-05-14] MEDS ORDERED: Eptifibatide 20 mg/10mL Inj IVP ONE (14:25)
[2018-05-14] MEDS ORDERED: Nitroglycerin 50mg in D5W 50 MG/250 ML BOTTLE IV ONE (14:42)
[2018-05-14] MEDS: Sodium Chloride 0.9% 1,000 ML IV SCH (15:24)
--- NOTE | 2018-05-14 15:32 | CPOSTOP ---
DATE: 05/14/2018 CARDIOVASCULAR LAB POSTPROCEDURE NOTE PHYSICIAN: Dr. Layla Powers. INVENTORY CONTROL ASSISTANT: Alix plastic surgery technician. TYPE OF ANESTHESIA: Moderate conscious sedation. Total 2 mg of Versed and 100 of fentanyl given periodically. Started 1 mg of Versed and 50 of fentanyl. PRE-PROCEDURE DIAGNOSES: Unstable angina, non-ST segment myocardial infarction. PROCEDURE PERFORMED: 1. Left heart catheterization. 2. Stenting of obtuse marginal 1 (circumflex). 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 Very well collateralized from LAD, preserved LV function. FINAL DIAGNOSIS: Critical two vessel disease. VASCULAR ACCESS SITE: Right femoral artery. CLOSURE DEVICE: Angio-Seal. TOTAL RADIATION DOSE: 24770.2 milligray unit. FLUORO TIME: 7.6 minute. TOTAL CONTRAST USED: 160 mL. Van Powers MD
--- NOTE | 2018-05-14 16:19 | CARD ---
APPROVED REPORT Date of service: 05/14/2018 EKG Measurement Heart [id number] <Conclusion> Normal sinus rhythm Inferior infarct, age undetermined STTW changes c/w ischemia Prolonged QTc
--- NOTE | 2018-05-14 16:21 | CARD ---
APPROVED REPORT Date of service: 05/14/2018 EKG Measurement Heart [id number] <Conclusion> Sinus rhythm Possible Left atrial enlargement Inferior infarct, age undetermined
--- NOTE | 2018-05-14 17:48 | CARD ---
APPROVED REPORT Date of service: 05/14/2018 Procedure(s) performed: Left Heart Catheterization PTCA with Stenting of OM1 with DAYLIN. HISTORY The patient is a 67 year-old female with a history of : tobacco history() : The patient is a current smoker , hypertension , admitted with NSTEMI. INDICATION The indication(s) include : non-STEMI . CASE TECHNIQUE The patient was brought urgently to the Cardiac Catheterization Laboratory in a fasting state and was prepped and draped in a sterile manner. The right femoral groin was infiltrated with 2% Lidocaine subcutaneous anesthesia. A 6 Fr x 11 cm Kelli sheath was inserted into the right femoral artery without difficulty. Coronary angiography was performed using coronary diagnostic catheters. The left coronary system was accessed and visualized with a Diagnostic,5F JL 4 CATH DXT 100 CM catheter. The right coronary system was accessed and visualized with a Diagnostic ,5F JR 4 CATH DXT 100 CM catheter. The left ventricle was accessed and visualized with a 5F PIGTAIL 145 CATH DXT 110 CM catheter. Left ventricular/Aortic Valve gradient assessed on pullback. Left ventriculogram was performed in [place]LL projection. Closure device was deployed with a 6 Fr Angio-Seal without any complications. The patient tolerated the procedure well and there were no complications associated with the procedure. Vessel Analysis The patient's coronary anatomy is right dominant. The left main coronary artery is a medium size vessel with diffuse calcification noted throughout this vessel and without significant stenosis. There is a 20-30% stenosis in the mid segment. The left main bifurcates to the left anterior descending and circumflex. The left anterior descending artery is a medium size vessel with diffuse calcification noted throughout this vessel and without significant stenosis. The first diagonal branch is a medium size vessel with diffuse calcification noted throughout this vessel and without significant stenosis. The second diagonal branch is a small size vessel with diffuse calcification noted throughout this vessel and without significant stenosis. The circumflex artery is a large size vessel with diffuse calcification noted throughout this vessel and without significant stenosis. The first obtuse marginal branch is a large size vessel with diffuse calcification noted throughout this vessel and with significant stenosis. There is a 90% stenosis in the mid segment. The second obtuse marginal branch is a large size vessel with diffuse calcification noted throughout this vessel and without significant stenosis. The right coronary artery is a small to medium size vessel with diffuse calcification noted throughout this vessel and with significant stenosis. There is a 100% stenosis in the proximal to segment. DELIVERY COORDINATOR The right posterior descending artery is a small size vessel collateralized from CX. Left Ventricle The left ventricle is normal in size with normal contractility. There was no cardiomyopathy. The left ventricular ejection fraction is estimated to be 55%. The left ventricular end diastolic pressure is 18-20 mmHg. There was no gradient across the aortic valve upon pullback. PCI Technique Lesion Anticoagulation was achieved with Heparin and Integrellin Bollouses. Percutaneous coronary intervention was performed on the first obtuse marginal branch segment. The lesion stenosis prior to intervention was 90% with DOMINICK 2 flow. A 6 Fr XB 3.5 Guide Catheter was used to engage the ostium. A Luge 182 and Choice PT as a Budy wire Interventional Guidewire was used to cross the lesion. BALLOON DILATION A Balloon catheter 2.5 x 15 mm Sprinter RX was inserted and inflated up to 8.00atm for 23seconds. STENT DEPLOYMENT A drug-eluting stent STENT RESOLUTE JUAN 2.75 X22 was inserted and inflated up to 14.00atm for 10seconds. Final angiography reveals 0 % stenosis with DOMINICK 3 flow. Conclusion Two Vessel critical disease, RCA DELIVERY COORDINATOR and OM! ( Circumflex0 90% stenosis possible culprit for NSTAMI. RCA is collateralized from CX Preserved Lv FX.EF-55%, EDP-18-20 mmof Hg. Successful PTCA with DAYLIN of OM1 ( circumflex). Recommendations Smoking Cessation Daily ASA with Plavix for at least one year Aggressive Medical TherapyCardiac Risk Reduction Program Add Beta felisa, Statin and SKY/ ARB as BP is tolerated. CC; Christina Colunga MD.
[2018-05-14] MEDS ORDERED: Alum-Mag Hydrox-Simethicone Susp (30 mL) PO PRN (18:37)
[2018-05-14] MEDS ORDERED: Simethicone 40 mg/0.6 ml Liquid (30 ml) PO PRN (18:38)
[2018-05-14] MEDS ORDERED: Metoprolol 1 mg/ml Inj IVP ONE (18:42)
--- NOTE | 2018-05-14 19:45 | CON ---
DATE: 05/14/2018 REASON FOR CONSULTATION AND FOLLOWUP: Cardiac evaluation, rule out non-ST myocardiac infraction, and coronary artery disease. BRIEF CLINICAL HISTORY: The patient is a 67-year-old female with past medical history of significant anxiety disorder, history of gastric ulcer, hypertension, panic attack, recently had endoscopy for multiple ulcers, came to the ER with complain of panic attack and belching whole night, and positive troponin. The patient denies any chest pain, shortness of breath, or any palpitation. Discussed with ER physician to get a CAT scan of the chest to rule out any aortic dissection. Discussed with the patient, the patient had recently history of duodenal ulcer and gastritis, called Dr. Anthony Greene, who is a cut pressman. The patient had endoscopy 2 weeks ago, but no active bleeding. Okay to go for cardiac catheterization. PAST MEDICAL HISTORY: Significant for hypertension, anxiety disorder, and peptic ulcer disease. ALLERGIES: ALLERGIC TO DOXYCYCLINE, ERYTHROMYCIN, AND PENICILLIN. CURRENT MEDICATIONS: The patient is taking simethicone, Norvasc, Gaviscon, omeprazole, and Xanax. FAMILY HISTORY: Significant for coronary artery disease in brother and father has a coronary artery disease. REVIEW OF SYSTEMS: As per HPI. PHYSICAL EXAMINATION: GENERAL: Height of the patient 5 feet 5 inches, weight of the patient 191.1 pounds, body mass index 31.8 meter squared. VITAL SIGNS: Temperature afebrile, heart rate 85, and blood pressure 130/80. HEENT: PERRLA intact. NECK: Supple. No carotid bruits or thyromegaly. CHEST: Clear to auscultation. HEART: S1 and S2 regular. ABDOMEN: Soft. EXTREMITIES: Clubbing and cyanosis, negative. LABORATORY DATA: Blood work up shows WBC , hemoglobin 14, hematocrit 41.3, and platelet count 330. Chemistry shows; sodium 130, potassium 4.5, chloride 105, carbon dioxide 22, anion gap of 13, BUN 14, creatinine 0.7, troponin 1.13, triglycerides 137, cholesterol 228, LDL 164, HDL 34. IMPRESSION: A 67-year-old female with past medical history significant for hypertension, anxiety disorder, came in with a belching and positive troponin. EKG shows normal sinus rhythm, no acute ST-changes noted. CT angio, aortic defection profile protocol done and no evidence of aortic dissection noted. Discussed with the patient and discussed with brother, treatment for . We will proceed for cardiac catheterization. Discussed with baldemar Grayson to do a stent if needed and the patient can tolerate dual-antiplatelet therapy. No active bleeding noted. Further recommendation will depend on the hospital course. We will load aspirin and Plavix. We will get echo to assess LV function. We will follow with you. Thank you for providing us this opportunity in taking care of the patient Radha Friend. Van Powers MD
[2018-05-14 20:24] LABS: BASO # 0.02 K/mm3 (0.0-2.0); BASO % 0.2 % (0.0-3.0); EOS % 0.3 % (1.5-5.0); GRAN # 9.94 (1.4-6.5); GRAN % 75.5 % (50.0-68.0); HEMOGLOBIN 13.5 g/dL (12.0-16.0); LYMPH # 2.1 (1.2-3.4); LYMPH % 15.6 % (22.0-35.0); MEAN CELL VOLUME 91.8 fl (80.0-105.0); MEAN CORPUSCULAR HEMOGLOBIN 30.8 pg (25.0-35.0); MEAN CORPUSCULAR HGB CONC 33.6 g/dl (31.0-37.0); MEAN PLATELET VOLUME 9.1 fl (7.0-11.0); MONO # 1.1 (0.1-0.6); MONO % 8.4 % (1.0-6.0); RBC 4.38 10^6/uL (3.5-6.1); WHITE BLOOD COUNT 13.2 10^3/uL (4.5-11.0)
[2018-05-14 20:34] LABS: BLOOD UREA NITROGEN 10 mg/dL (7-21); CALCIUM 9.4 mg/dL (8.4-10.5); GFR NON-AFRICAN AMERICAN > 60
[2018-05-15] MEDS ORDERED: Pantoprazole 40 mg EC Tab PO SCH (07:30)
--- NOTE | 2018-05-15 07:43 | CP.CCUPN ---
CCU Subjective - Physician Review Subjective (Free Text): Jesse Benitez Internal Medicine Resident- Consult Note on Behalf of Critical Care Team Subjective: Patient seen and examined. No acute events overnight. Admits to baseline back pain from history of spinal stenosis and degenerative disc disease. Denies fever, chills, chest pain, SOB, abdominal pain, nausea, vomiting, diarrhea, constipation, and urinary symptoms. 12 point ROS negative except as indicated in the HPI Physical Examination: - Constitutional Appears: No acute distress - Head Exam Head Exam: ATRAUMATIC, NORMAL INSPECTION, NORMOCEPHALIC - Eye Exam Eye Exam: PERRL - ENT Exam ENT Exam: Mucous Membranes Moist - Respiratory Exam Respiratory Exam: CTA bilaterally - Cardiovascular Exam Cardiovascular Exam: RRR, REGULAR RHYTHM - GI/Abdominal Exam GI & Abdominal Exam: Normal Bowel Sounds, Soft. absent: Tenderness - Extremities Exam Extremities exam: no clubbing, no cyanosis - Neurological Exam Neurological exam: AAO x 3, responds to verbal stimuli, follows commands, moves extremities past midline - Skin Skin Exam: Right Femoral site clean, dry, intact Assessment and Plan: Patient is a 67 year old female with a past medical history of hypertension, hyperlipidemia, gastric polyps, colonic polyps, hiatal hernia, peptic ulcer disease, and panic attacks who was admitted for evaluation and treatment of abdominal pain. Found to have NSTEMI. Transferred to ICU for further management. Neuro: - AAO x 3 Cardiovascular: NSTEMI, Hx of HTN, Hx of HPL - 05/14/2017 EKG- sinus rhythm with PACs with aberrant conduction, possible left atrial enlargement HR 98bpm, QTc 474ms - 05/14/2017 CT Angiography Chest, Abdomen and Pelvis with and without intravenous contrast-No evidence of aortic dissection. 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 - decrease IVF NS to 100cc/hr due to contrast load from CTA and expected contrast use during cardiac catherization - N acteylcysteine 600ml x 1 for renal protection - keep MAP > 65 Pulm: Active Tobacco Abuse - tobacco cessation advised - keep SaO2 > 90% GI Abdominal Pain, Hx of gastric polyps, colonic polyps, hiatal hernia, diverticulosis, internal hemorrhoids, duodenal ulcers - improving - no acute intervention - protonix 40 IV daily for prophylaxis Heme DVT PPx - on heparin drip Patient case discussed with and plan approved by attending physician, Dr. Celi Mcmullen. CCU Objective - Vital Signs / Intake & Output Vital Signs (Last 4 hours): Vital Signs Pulse 05/15/18 04:00 92 H Intake and Output (Last 8hrs): Intake & Output 05/14/18 05/15/18 05/15/18 22:59 06:59 14:59 Intake Total 1700 Output Total 900 Balance 800 Intake: IV 1400 Right Forearm 1400 Oral 300 Output: Urine 900 Urine, Voided 900 Other: # Voids Urine, Voided 3 - Physical Exam Head: Positive for: Atraumatic, Normocephalic Pupils: Positive for: PERRL Extroacular Muscles: Positive for: EOMI Conjunctiva: Positive for: Normal Mouth: Positive for: Moist Mucous Membranes Neck: Positive for: Normal Range of Motion Respiratory/Chest: Positive for: Clear to Auscultation, Good Air Exchange. Negative for: Respiratory Distress, Accessory Muscle Use Cardiovascular: Positive for: Regular Rate and Rhythm, Normal S1, S2. Negative for: Murmurs Abdomen: Negative for: Tenderness, Distention, Peritoneal Signs Back: Positive for: Normal Inspection Upper Extremity: Positive for: Normal Inspection. Negative for: Cyanosis, Edema Lower Extremity: Positive for: Normal Inspection. Negative for: Edema Neurological: Positive for: GCS=15, CN II-XII Intact, Speech Normal Skin: Positive for: Warm, Dry, Normal Color. Negative for: Rashes Psychiatric: Positive for: Alert, Oriented x 3, Normal Insight, Normal Concentration - Medications Active Medications: Active Medications Generic Name Dose Route Start Last Admin Trade Name Freq PRN Reason Stop Dose Admin Al Hydrox/Mg Hydrox/Simethicone 30 ml 05/14/18 18:37 05/14/18 18:54 Maalox Plus 30 Ml PO 30 ml DAILY PRN Administration Indigestion / Heartburn Alprazolam 0.5 mg 05/14/18 12:36 05/14/18 22:27 Xanax PO 0.5 mg TID PRN Administration Anxiety Protocol Aspirin 81 mg 05/15/18 10:00 Ecotrin PO DAILY MELISSA Atorvastatin Calcium 40 mg 05/14/18 17:00 05/14/18 17:49 Lipitor PO Not Given DIN MELISSA Clopidogrel Bisulfate 75 mg 05/15/18 10:00 Plavix PO DAILY [facility] Sodium Chloride 1,000 mls @ 100 mls/hr 05/14/18 15:15 05/14/18 15:24 Sodium Chloride 0.9% IV 100 mls/hr .Q10H MELISSA Administration Lisinopril 2.5 mg 05/15/18 10:00 Zestril PO DAILY MELISSA Metoprolol Tartrate 25 mg 05/14/18 18:00 05/14/18 17:52 Lopressor PO 25 mg BID MELISSA Administration Nicotine 1 patch 05/14/18 12:45 05/14/18 15:23 Nicoderm Cq TD 1 patch DAILY MELISSA Administration Pantoprazole Sodium 40 mg 05/15/18 07:30 Protonix Ec Tab PO ACB MELISSA Simethicone 40 mg 05/14/18 18:38 05/14/18 19:24 Mylicon Liq PO 40 mg QID PRN Administration Dyspepsia - Patient Studies Lab Studies: Lab Studies 05/14/18 05/14/18 05/14/18 Range/Units 20:19 20:19 04:49 WBC 13.2 H (4.5-11.0) 10^3/uL RBC 4.38 (3.5-6.1) 10^6/uL Hgb 13.5 (12.0-16.0) g/dL Hct 40.2 (36.0-48.0) % MCV 91.8 (80.0-105.0) fl MCH 30.8 (25.0-35.0) pg MCHC 33.6 (31.0-37.0) g/dl RDW 13.0 (11.5-14.5) % Plt Count 312 (120.0-450.0) 10^3/uL MPV 9.1 (7.0-11.0) fl Gran % 75.5 H (50.0-68.0) % Lymph % (Auto) 15.6 L (22.0-35.0) % [place] % (Auto) 8.4 H (1.0-6.0) % Eos % (Auto) 0.3 L (1.5-5.0) % Baso % (Auto) 0.2 (0.0-3.0) % Gran # 9.94 H (1.4-6.5) Lymph # (Auto) 2.1 (1.2-3.4) [place] # (Auto) 1.1 H (0.1-0.6) Eos # (Auto) 0.0 (0.0-0.7) Baso # (Auto) 0.02 (0.0-2.0) K/mm3 Sodium 138 (132-148) mmol/L Potassium 3.7 (3.6-5.0) mmol/L Chloride 106 (98-107) mmol/L Carbon Dioxide 24 (21-33) mmol/L Anion Gap 12 (10-20) BUN 10 (7-21) mg/dL Creatinine 0.7 (0.7-1.2) mg/dl Est GFR ( Amer) > 60 Est GFR (Non-Af Amer) > 60 Random Glucose 174 H (70-110) mg/dL Calcium 9.4 (8.4-10.5) mg/dL Triglycerides 137 (35-160) mg/dL Cholesterol 228 H (130-200) mg/dL LDL Cholesterol Direct 164 H (0-129) mg/dL HDL Cholesterol 34 (29-60) mg/dL Laboratory Results - last 24 hr 05/14/18 05/14/18 05/14/18 04:49 20:19 20:19 WBC 13.2 H RBC 4.38 Hgb 13.5 Hct 40.2 MCV 91.8 MCH 30.8 MCHC 33.6 RDW 13.0 Plt Count 312 MPV 9.1 Gran % 75.5 H Lymph % (Auto) 15.6 L [place] % (Auto) 8.4 H Eos % (Auto) 0.3 L Baso % (Auto) 0.2 Gran # 9.94 H Lymph # (Auto) 2.1 [place] # (Auto) 1.1 H Eos # (Auto) 0.0 Baso # (Auto) 0.02 Sodium 138 Potassium 3.7 Chloride 106 Carbon Dioxide 24 Anion Gap 12 BUN 10 Creatinine 0.7 Est GFR ( Amer) > 60 Est GFR (Non-Af Amer) > 60 Random Glucose 174 H Calcium 9.4 Triglycerides 137 Cholesterol 228 H LDL Cholesterol Direct 164 H HDL Cholesterol 34 Radiology Impressions: Radiology Impressions Chest X-Ray 05/14/18 04:43 IMPRESSION: No active disease. Angiography CT 05/14/18 05:58 IMPRESSION: No evidence of aortic dissection. No evidence of pulmonary embolism EKG/Cardiology Studies: Cardiology / EKG Studies 05/14/18 06:29 ELECTROCARDIOGRAM Stat Comment: Reason For Exam: 2ND EKG 05/14/18 15:01 ELECTROCARDIOGRAM Urgent Comment: 12 lead EKG upon arrival in unit Reason For Exam: post ptca 05/15/18 07:00 ELECTROCARDIOGRAM Routine Comment: post pci Reason For Exam: CAD PRE OP:: N Does Patient Have a Pacemaker?: No PERFORMING PHYSICIAN/PROVIDER:: Van Powers Critical Care Progress Note - Nutrition Nutrition: Nutrition Category Date Time Status Heart Healthy Diet [DIET] Diets 05/14/18 Dinner Active
[2018-05-15 07:47] LABS: ALB/GLOB RATIO 1.3 (1.1-1.8); ALBUMIN 4.1 g/dL (3.0-4.8); ALT/SGPT 38 U/L (7-56); AST/SGOT 123 U/L (14-36); BLOOD UREA NITROGEN 9 mg/dL (7-21); CALCIUM 9.3 mg/dL (8.4-10.5); GFR NON-AFRICAN AMERICAN > 60
[2018-05-15] MEDS: Sodium Chloride 0.9% 1,000 ML IV SCH (07:54)
--- NOTE | 2018-05-15 09:05 | CARD ---
APPROVED REPORT Date of service: 05/14/2018 EKG Measurement Heart [id number] <Conclusion> Normal sinus rhythm Inferior infarct, age undetermined Abnormal ECG
--- NOTE | 2018-05-15 09:32 | CARD ---
APPROVED REPORT Date of service: 05/15/2018 EKG Measurement Heart [id number] <Conclusion> Normal sinus rhythm Inferior infarct, age undetermined Abnormal ECG
[2018-05-15] MEDS ORDERED: Potassium Chloride 20 mEq ER Tab PO ONE (11:36)
[2018-05-15 11:39] VITALS: BP 129/75; O2SAT 98
[2018-05-15 12:22] VITALS: PULSE 94; RESP 20; TEMP 97.8
--- NOTE | 2018-05-15 14:15 | PN ---
DATE: 05/15/2018 SUBJECTIVE: The patient is lying in bed comfortable. She underwent cardiac cath with stenting of her obtuse marginal with a drug-eluting stent. PHYSICAL EXAMINATION: VITAL SIGNS: Reveal afebrile. Blood pressure 145/92, heart rate 93. HEENT: Reveal sclerae to be white. Conjunctivae pink. NECK: Supple. CHEST: Lungs are clear. HEART: Exam reveals regular rate and rhythm. ABDOMEN: Soft, nontender. No mass. EXTREMITIES: Show no edema. LABORATORY DATA: Reveal white blood cell count 13.2, hemoglobin 13.5. Chemistries reveal blood sugar of 120, AST 123. IMPRESSION: A 67-year-old female admitted to the hospital with chest pain, found to have non-ST elevation myocardial infarction, underwent cardiac cath with drug-eluting stent placement of an occluded obtuse marginal artery. She does have history of duodenal ulcers, this should have healed. RECOMMENDATIONS: Continue PPI, continue Plavix and aspirin. Anthony Greene MD
--- NOTE | 2018-05-15 14:39 | PN ---
DATE: 05/15/2018 REASON FOR CONSULTATION: Followup, non-ST segment myocardial infarction status post PTCA off circumflex, obtuse marginal 1 branch. The patient denies any chest pains, shortness of breath, any palpitations, feels a lot better. No belching or shortness of breath. PHYSICAL EXAMINATION: VITAL SIGNS: Temperature afebrile, heart rate 93, blood pressure 145/92. HEENT: PERRLA. Extraocular muscles intact. NECK: Supple. No carotid bruits. No thyromegaly. CHEST: Clear to auscultation. HEART: S1 and S2 regular. ABDOMEN: Soft. EXTREMITIES: Clubbing, cyanosis negative. LABORATORY DATA: Blood workup as follows. WBC 13.2, hemoglobin 13, hematocrit 40.2, platelet count 312. Chemistries show sodium 139, potassium 3.8, chloride 108, carbon dioxide 24, anion gap of 11, BUN 9 and creatinine 0.7. AST 123. ASSESSMENT AND PLAN: The patient is a 67-year-old female with a past medical history significant for anxiety disorder, hiatal hernia, and history of admitted with non-ST segment myocardial infarction status post primary angioplasty for obtuse marginal 1. 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 RECOMMENDATIONS: Continue aspirin. Continue Plavix for one year mandatory, if the patient can tolerate. Continue baby aspirin, continue Plavix, continue atorvastatin 40 mg daily. Continue metoprolol 25 mg daily and continue lisinopril 2.5 mg daily. The patient is okay to be discharged from a Cardiology point of view. Discussed with Dr. Greene. Upon discharge, the patient will be seen in two weeks in office. We will supplement potassium. Thank you Dr. Greene for providing the opportunity in taking care of the patient Friend, Radha. We will follow with you. Van Powers MD
--- NOTE | 2018-05-15 22:10 | DS ---
HISTORY OF PRESENT ILLNESS: The patient is 67 years old, who came in to emergency room because of epigastric discomfort radiating to her chest. Patient had stress test done last year, it was found to be normal; however, patient has troponin positive, so patient was taken to label coder yesterday and underwent cardiac cath and drug eluted stent was placed. She had circumflex angioplasty since her obtuse marginal was 95% stenosed and she also has RCA angioplasty done and LV function is preserved. The patient was seen and examined this morning, doing well. No nausea or vomiting. No diarrhea. PHYSICAL EXAMINATION: VITAL SIGNS: Patient is afebrile, pulse 93, respiration 18, and blood pressure 129/75. LUNGS: Bilateral fair airflow. No rhonchi or crackles. HEART: S1 and S2 audible. ABDOMEN: Soft and nontender. No rebound. No guarding. EXTREMITIES: Bilateral legs, no edema. NEUROLOGIC: The patient is awake, alert, oriented, communicative, and ambulatory. LABORATORY DATA: WBC 13.2, hemoglobin 13, hematocrit 40, and platelet 312. Chemistry, sodium 139, potassium 3.8, chloride 108, CO2 of 24, BUN 9, creatinine 0.7, and blood sugar 120. LFTs are within normal limits. Cholesterol 228. ASSESSMENT: Non-ST elevation myocardial elevation status post cardiac cath and had circumflex angioplasty done, hypertension, hyperlipidemia, and peptic ulcer disease. DISCHARGE PLAN: The patient is being discharged home on aspirin 81 mg daily. She is on Lipitor 40 mg daily. She is on metoprolol 25 mg twice a day, Plavix 75 mg daily, Protonix 40 mg daily, lisinopril 2.5 mg daily. We will follow patient in office and she is advised to quit smoking also. Zohra Rain MD
--- NOTE | 2018-05-18 14:01 | CARD ---
APPROVED REPORT Date of service: 05/15/2018 EXAM: Two-dimensional and M-mode echocardiogram with Doppler and color Doppler. INDICATION Chest Pain 2D DIMENSIONS Left Atrium (2D)4.0 (1.6-4.0cm)IVSd1.5 (0.7-1.1cm) LVDd4.1 (3.9-5.9cm)PWd1.3 (0.7-1.1cm) LVDs3.2 (2.5-4.0cm)FS (%) 21.8 % LVEF (%)44.7 (>50%) M-Mode DIMENSIONS Aortic Root3.10 (2.2-3.7cm)Aortic Cusp Exc.1.80 (1.5-2.0cm) Aortic Valve AoV Peak Ipxszksu976.0cm/Singh Peak GR.4mmHg Mitral Valve MV E Iuoulhbe85.4cm/sMV A Cnkpkdla13.8cm/sE/A ratio0.6 TDI E/Lateral E'0.0E/Medial E'0.0 Tricuspid Valve TR Peak [id number]/sRAP [id number] Peak Gr.6mmHg [id number] LEFT VENTRICLE The left ventricle is normal size. There is mild concentric left ventricular hypertrophy. Left ventricle systolic function is low normal.EF-50% There is normal LV segmental wall motion. Transmitral Doppler flow pattern is Grade III-reversible restrictive diastolic dysfunction. No left ventricle thrombus noted on this study. There is no ventricular septal defect visualized. There is no left ventricular aneurysm. There is no mass noted in the left ventricle. RIGHT VENTRICLE The right ventricle is normal size. There is normal right ventricular wall thickness. The right ventricular systolic function is normal. ATRIA The left atrium is borderline dilated. The right atrium size is normal. The interatrial septum is intact with no evidence for an atrial septal defect. AORTIC VALVE The aortic valve is thickened but opens well. No aortic regurgitation is present. There is no aortic valvular stenosis. There is no aortic valvular vegetation. MITRAL VALVE The mitral valve is thickened but opens well. Mitral regurgitation is mild. There is no mitral valve stenosis. There is no evidence of mitral valve prolapse. TRICUSPID VALVE The tricuspid valve leaflets are thickened , but open well. There is trace tricuspid regurgitation.RVSP-16 mmof hg. There is no tricuspid valve stenosis. There is no tricuspid valve prolapse or vegetation. PULMONIC VALVE The pulmonic valve is borderline thickened. There is trace pulmonic valvular regurgitation. There is no pulmonic valvular stenosis. GREAT VESSELS The aortic root is normal in size. The ascending aorta is normal in size. The pulmonary artery is normal. The IVC is normal in size and collapses >50% with inspiration. PERICARDIAL EFFUSION There is no pleural effusion. There is no pericardial effusion. <Conclusion> Normal Chamber Size. EF-50% Mitral regurgitation is mild. There is trace tricuspid regurgitation.RVSP-16 mmof hg. There is trace pulmonic valvular regurgitation. There is no pericardial effusion.
== END 2018-05-15 13:59 | disposition home or self-care (01) | DRG 247 ==
LOC: ED 04:09 → ERH 07:14 → CCU 09:13 → 2RSO 05-15 10:21
PROVIDERS: ADMIT Internal Medicine; ATTEND Internal Medicine
PROC: 027034Z Dilation of Coronary Artery, One Artery with Drug-eluting Intraluminal Device, Percutaneous Approach (ICD-10-PCS; principal; 2018-05-14)
PROC: 4A023N7 Measurement of Cardiac Sampling and Pressure, Left Heart, Percutaneous Approach (ICD-10-PCS; 2018-05-14)
PROC: B2151ZZ Fluoroscopy of Left Heart using Low Osmolar Contrast (ICD-10-PCS; 2018-05-14)
PROC: B2111ZZ Fluoroscopy of Multiple Coronary Arteries using Low Osmolar Contrast (ICD-10-PCS; 2018-05-14)
PROC: 3E033PZ Introduction of Platelet Inhibitor into Peripheral Vein, Percutaneous Approach (ICD-10-PCS; 2018-05-14)
DX: I21.4 Non-ST elevation (NSTEMI) myocardial infarction (principal); I25.110 Atherosclerotic heart disease of native coronary artery with unstable angina pectoris; I10 Essential (primary) hypertension; K21.9 Gastro-esophageal reflux disease without esophagitis; K29.70 Gastritis, unspecified, without bleeding; K57.90 Diverticulosis of intestine, part unspecified, without perforation or abscess without bleeding; F41.0 Panic disorder [episodic paroxysmal anxiety]; M17.0 Bilateral primary osteoarthritis of knee; I25.82 Chronic total occlusion of coronary artery; K31.7 Polyp of stomach and duodenum; K63.5 Polyp of colon; K44.9 Diaphragmatic hernia without obstruction or gangrene; K26.9 Duodenal ulcer, unspecified as acute or chronic, without hemorrhage or perforation; E78.5 Hyperlipidemia, unspecified; F17.210 Nicotine dependence, cigarettes, uncomplicated; Z87.11 Personal history of peptic ulcer disease; Z79.02 Long term (current) use of antithrombotics/antiplatelets; Z79.82 Long term (current) use of aspirin

== ENCOUNTER 2018-07-23 07:36 | Observation (INO) | payer MEDICARE ==
[2018-07-23 07:42] VITALS: BMI 34.1
[2018-07-23 08:52] LABS: BASO # 0.01 K/mm3 (0.0-2.0); BASO % 0.1 % (0.0-3.0); EOS # 0.1 (0.0-0.7); EOS % 1.4 % (1.5-5.0); HEMOGLOBIN 13.5 g/dL (12.0-16.0); LYMPH % 24.8 % (22.0-35.0); MEAN CORPUSCULAR HEMOGLOBIN 30.3 pg (25.0-35.0); MEAN CORPUSCULAR HGB CONC 33.3 g/dl (31.0-37.0); MEAN PLATELET VOLUME 9.1 fl (7.0-11.0); MONO # 0.5 (0.1-0.6); MONO % 6.8 % (1.0-6.0); RBC 4.45 10^6/uL (3.5-6.1); RED CELL DISTRIBUTION WIDTH 13.6 % (11.5-14.5)
[2018-07-23 08:53] LABS: ALB/GLOB RATIO 1.3 (1.1-1.8); ALBUMIN 4.1 g/dL (3.0-4.8); ALT/SGPT 21 U/L (7-56); AST/SGOT 19 U/L (14-36); BLOOD UREA NITROGEN 20 mg/dL (7-21); CALCIUM 9.8 mg/dL (8.4-10.5); GFR NON-AFRICAN AMERICAN > 60
--- NOTE | 2018-07-23 08:53 | RAD ---
Date of service: 07/23/2018 HISTORY: chest pain COMPARISON: 05/14/2018 TECHNIQUE: 1 view obtained. FINDINGS: LUNGS: No active pulmonary disease. PLEURA: No significant pleural effusion identified, no pneumothorax apparent. CARDIOVASCULAR: No aortic atherosclerotic calcification present. Normal cardiac size. No pulmonary vascular congestion. OSSEOUS STRUCTURES: No significant abnormalities. VISUALIZED UPPER ABDOMEN: Normal. OTHER FINDINGS: None. IMPRESSION: No active disease.
--- NOTE | 2018-07-23 08:53 | ED PDOC ---
Arrival/HPI - General Chief Complaint: Chest Pain Time Seen by Provider: 07/23/18 07:57 Historian: Patient - History of Present Illness Narrative History of Present Illness (Text): 07/23/18 08:49 67 year old female, on Plavix, whose past medical history includes SD s/p stent placement in April, GERD, peptic ulcer disease, and cholecystectomy, who presents to the emergency department complaining of nausea and chest tightness since 2 am this morning. Patient worries symptoms may be secondary to recent changes in her blood pressure medication, prompting her to present to the Emergency department for evaluation. Patient reports taking Aspirin this morning but denies taking her other routine medications. Patient denies any other associated somatic complaints. Patient denies any fevers, chills, headache, dizziness, shortness of breath, dyspnea on exertion, cough, diaphoresis, abdominal pain, vomiting, diarrhea, back pain, neck pain, or any other complaints. PMD: Dr. Rain Diagnostic Technologist: Dr. Powers Time/Duration: 4-6 hours Symptom Onset: Gradual Symptom Course: Intermittent Quality: Tightness Activities at Onset: Light Context: Home Past Medical History - Provider Review Nursing Documentation Reviewed: Yes - Tetanus Immunization Tetanus Immunization: Unknown - Reproductive Menopause: Yes - Cardiac Hx SD: Yes Hx Hypertension: Yes Hx Pacemaker: No - Pulmonary Other/Comment: hx smoking 1pk/day - Hematological/Oncological Hx Blood Transfusions: No Hx Blood Transfusion Reaction: No - Musculoskeletal/Rheumatological Hx Musculoskeletal Disorders: Yes (RIGHT KNEE) Hx Spinal Stenosis: Yes - Gastrointestinal Hx Gastrointestinal Disorders: Yes Hx Gall Bladder Disease: Yes Hx Gastroesophageal Reflux: Yes - Psychiatric Hx Psychophysiologic Disorder: Yes Hx Emotional Abuse: No Hx Panic Disorder: Yes Hx Physical Abuse: No Hx Substance Use: No - Surgical History Hx Appendectomy: Yes Hx Cholecystectomy: Yes Hx Coronary Stent: Yes - Anesthesia Hx Anesthesia: Yes Hx Anesthesia Reactions: No Hx Malignant Hyperthermia: No - Suicidal Assessment Feels Threatened In Home Enviroment: No Family/Social History - Physician Review Nursing Documentation Reviewed: Yes Family/Social History: No Known Family HX Smoking Status: Heavy Smoker > 10 Cigarettes Daily Hx Alcohol Use: Yes (RARE SOCIAL OCCASSIONS) Hx Substance Use: No Allergies/Home Meds Allergies/Adverse Reactions: Allergies doxycycline [From Vibramycin] Allergy (Severe, Verified 04/13/18 16:49) IMPENDING DOOM erythromycin base Allergy (Severe, Verified 04/13/18 16:49) ANAPHYLAXIS FISH Allergy (Severe, Verified 04/13/18 16:49) SWELLING Penicillins Adverse Reaction (Verified 09/28/16 03:26) RASH Home Medications: Home Meds Medication Instructions Recorded Confirmed Alprazolam [Xanax] 0.5 mg PO BID 09/19/17 05/14/18 Simethicone [Gas-X Extra Strength] 125 mg PO PRN PRN 05/14/18 05/14/18 Aspirin [Ecotrin] 81 mg PO DAILY 05/15/18 07/23/18 Clopidogrel [Plavix] 75 mg PO DAILY 05/15/18 07/23/18 Lisinopril [Zestril] 5 mg PO DAILY 05/15/18 07/23/18 Pantoprazole Sodium [Protonix] 40 mg PO ACB 05/15/18 07/23/18 Benzonatate [Tessalon Perles] 100 mg PO TID 07/23/18 07/23/18 Cyclobenzaprine [Cyclobenzaprine 10 mg PO HS 07/23/18 07/23/18 HCl] Losartan [Cozaar] 50 mg PO HS 07/23/18 07/23/18 Meloxicam [Mobic] 15 mg PO DAILY 07/23/18 07/23/18 Metoprolol Tartrate [Lopressor] 25 mg PO BID 07/23/18 07/23/18 Montelukast [Singulair] 10 mg PO DAILY 07/23/18 07/23/18 Review of Systems - Physician Review All systems were reviewed & negative as marked: Yes - Review of Systems Constitutional: absent: Fevers Eyes: absent: Vision Changes Respiratory: absent: SOB, Cough Cardiovascular: Chest Pain. absent: CRONIN Gastrointestinal: Nausea. absent: Abdominal Pain, Diarrhea, Vomiting Genitourinary Female: absent: Dysuria, Urine Output Changes Musculoskeletal: absent: Back Pain, Neck Pain Skin: absent: Rash Neurological: absent: Headache, Dizziness Endocrine: absent: Diaphoresis Physical Exam - Physical Exam Narrative Physical Exam (Text): 07/23/18 08:54 Gen: VS reviewed, alert, well developed, well nourished, nontoxic, mild distress. Tremulous at bedside. ENT: normal pharynx. Eye: EOMI, PERRL. Neck: no JVD, supple, no adenopathy. CV: regular rate, regular rhythm, no rubs, no murmur, no gallops, S1, S2, pulses equal and strong. Pulm: no distress, clear to auscultation, no wheeze, no rhonchi, breath sounds equal, no rales. Abd: soft, nontender, no guarding, no rebound, no rigidity, normal bowel sounds. Ext: no edema. Skin: good color, no rash, no cyanosis. Psych: responds appropriately to questions, normal affect. Neuro: oriented x 3, CN2-12 intact grossly, motor intact, sensation intact. Vital Signs Reviewed: Yes Vital Signs Temp Pulse Resp BP Pulse Ox 07/23/18 07:42 97.8 F 114 H 20 124/67 99 Temperature: Afebrile Blood Pressure: Normal Pulse: Tachycardic Respiratory Rate: Normal Appearance: Positive for: Well-Appearing, Non-Toxic, Comfortable Pain Distress: Mild Mental Status: Positive for: Alert and Oriented X 3 Medical Decision Making ED Course and Treatment: 07/23/18 08:25 Impression: 67 year old female presents to the Emergency department for evaluation of nausea and chest tightness. Plan: -- EKG -- Labs -- Chest X-ray -- Reassess and disposition Prior Visits: Notes and results from previous visits were reviewed. Progress Notes: 07/23/18 10:[address] rain, patient to be admitted for chest pain, recent angioplasty with dr. powers, rule out acs, patient is chest pain free at this time. no significant concern for aortic dissection or PE. - RAD Interpretation Narrative RAD Interpretations (Text): 07/23/18 09:46 Chest X-ray reviewed by radiologist, shows: FINDINGS: LUNGS: No active pulmonary disease. PLEURA: No significant pleural effusion identified, no pneumothorax apparent. CARDIOVASCULAR: No aortic atherosclerotic calcification present. Normal cardiac size. No pulmonary vascular congestion. OSSEOUS STRUCTURES: No significant abnormalities. VISUALIZED UPPER ABDOMEN: Normal. OTHER FINDINGS: None. IMPRESSION: No active disease. Radiology Orders: 07/23/18 08:25 CHEST PORTABLE [RAD] Stat Slate Cutter Operator: Radiologist - EKG Interpretation EKG Interpretation (Text): 07/23/18 07:47 Sinus tachycardia at 103 bpm, nml qrs, nml axis, inferior infarct, nonspecific t-wave abnormality. 07/23/18 08:56 library monitor read: Sinus tachycardia @ 106 bpm. Interpreted by ED Physician: Yes Type: 12 lead EKG - Scribe Statement The provider has reviewed the documentation as recorded by the Rolyibibrahima Cooper. All medical record entries made by the Rolyibe were at my direction and personally dictated by me. I have reviewed the chart and agree that the record accurately reflects my personal performance of the history, physical exam, medical decision making, and the department course for this patient. I have also personally directed, reviewed, and agree with the discharge instructions and disposition. Disposition/Present on Arrival - Present on Arrival Any Indicators Present on Arrival: No History of DVT/PE: No History of Uncontrolled Diabetes: No Urinary Catheter: No History of Decub. Ulcer: No History Surgical Site Infection Following: None - Disposition Have Diagnosis and Disposition been Completed?: Yes Diagnosis: Angina at rest Disposition: HOSPITALIZED Disposition Time: 10:55 Patient Plan: Admission Patient Problems: Current Active Problems Problem Status Onset Angina at rest Acute Condition: GUARDED
[2018-07-23 09:03] LABS: TROPONIN I < 0.01 ng/mL
[2018-07-23 09:09] LABS: INR 0.99; PROTHROMBIN TIME 11.2 SECONDS (9.4-12.5)
--- NOTE | 2018-07-23 11:41 | CP.PCM.CON ---
History of Present Illness - History of Present Illness History of Present Illness: Awake, alert, no distress Reason for consultation:Cardiac evaluation of chest pain, history of coronary artery disease post stents Brief history of present illness: A 67 year old female who came in to the ER due nausea and vomiting and developed non radiating chest tightness since communication professor. History of non-STEMI, coronary artery disease post stent (05/14/18),GERD, peptic ulcer disease,cholecystectomy, hypertension, spinal stenosis, current smoker 1 PPD. Seen and examined by me and Dr. Beckham Review of Systems - Review of Systems All systems: reviewed and no additional remarkable complaints except Review of Systems: as per HPI Past Patient History - Tetanus Immunizations Tetanus Immunization: Unknown - Past Social History Smoking Status: Heavy Smoker > 10 Cigarettes Daily - CARDIAC Hx Heart Attack: Yes Hx Hypertension: Yes Hx Pacemaker: No - PULMONARY Other/Comment: hx smoking 1pk/day - HEMATOLOGICAL/ONCOLOGICAL Hx Blood Transfusions: No Hx Blood Transfusion Reaction: No - MUSCULOSKELETAL/RHEUMATOLOGICAL Hx Musculoskeletal Disorders: Yes (RIGHT KNEE) Hx Spinal Stenosis: Yes - GASTROINTESTINAL Hx Gastrointestinal Disorders: Yes Hx Gall Bladder Disease: Yes Hx Gastroesophageal Reflux: Yes - PSYCHIATRIC Hx Psychophysiologic Disorder: Yes Hx Emotional Abuse: No Hx Panic Symptoms: Yes Hx Physical Abuse: No Hx Substance Use: No - SURGICAL HISTORY Hx Appendectomy: Yes Hx Cholecystectomy: Yes Hx Coronary Stent: Yes - ANESTHESIA Hx Anesthesia: Yes Hx Anesthesia Reactions: No Hx Malignant Hyperthermia: No Meds Allergies/Adverse Reactions: Allergies Allergy/AdvReac Type Severity Reaction Status Date / Time doxycycline [From Vibramycin] Allergy Severe IMPENDING Verified 04/13/18 16:49 DOOM erythromycin base Allergy Severe ANAPHYLAXIS Verified 04/13/18 16:49 FISH Allergy Severe SWELLING Verified 04/13/18 16:49 Penicillins AdvReac RASH Verified 09/28/16 03:26 Results - Vital Signs Recent Vital Signs: Last Vital Signs Temp 97.8 F 07/23/18 07:42 Pulse 114 H 07/23/18 07:42 Resp 20 07/23/18 07:42 BP 124/67 07/23/18 07:42 Pulse Ox 99 07/23/18 07:42 - Labs Result Diagrams: 07/23/18 08:10 07/23/18 08:10 Labs: Laboratory Results - last 24 hr 03/28/19 03/28/19 03/28/19 08:10 08:10 08:10 WBC 8.0 D RBC 4.45 Hgb 13.5 Hct 40.5 MCV 91.0 MCH 30.3 MCHC 33.3 RDW 13.6 Plt Count 312 MPV 9.1 Neut % (Auto) 66.9 Lymph % (Auto) 24.8 [place] % (Auto) 6.8 H Eos % (Auto) 1.4 L Baso % (Auto) 0.1 Lymph # (Auto) 2.0 [place] # (Auto) 0.5 Eos # (Auto) 0.1 Baso # (Auto) 0.01 Absolute Neuts (auto) 5.33 PT 11.2 INR 0.99 APTT 31.0 Sodium 139 Potassium 5.0 Chloride 104 Carbon Dioxide 24 Anion Gap 16 BUN 20 Creatinine 0.8 Est GFR ( Amer) > 60 Est GFR (Non-Af Amer) > 60 Random Glucose 182 H Calcium 9.8 Total Bilirubin 0.4 AST 19 ALT 21 Alkaline Phosphatase 96 Lactate Dehydrogenase 458 Total Creatine Kinase 65 Troponin I < 0.01 D Total Protein 7.3 Albumin 4.1 Globulin 3.3 Albumin/Globulin Ratio 1.3 Assessment & Plan - Assessment and Plan (Free Text) Assessment: A 67 year old female who came in to the ER due to ausea and vomiting and developed non radiating chest tightness since communication professor. History of non- STEMI, coronary artery disease post stent (05/14/18),GERD, peptic ulcer disease,cholecystectomy, hypertension, spinal stenosis, current smoker 1 PPD. Had a recent echo on 05/15/18 and showed LVEF 50 %, trace tricuspid regurgitation,RVSP 16 mmHg, trace pulmonic valve regurgitation, mild mitral regurgitation. Recent cardiac cath on 05/14/18 showed two vessel critical coronary disease, RCA totally occluded with collateral perfusion from Circumflex. OM1 90% stenosis (possible culprit of Non-STEMI). LVEF 55%. Santos ccessful PTCA with DAYLIN of OM1 9circumflex). On Aspirin and Plavix for one year. Initial troponin 0.01, serial troponin. EKG- normal sinus tachycardia 104/min, no ischemia. Patient still smoking. Chest tightness maybe secondary to nausea and vomiting, GI in origin, troponin normal, EKG no ischemia . No evidence of myocardial ischemia. Will start Protonix. Will resume home medications.Will follow up. Plan: No distress Chest tightness probably GI in origin Will start on Protonix Blood pressure controlled Resume home medications, Plavix 75 mg daily, ASA 81 mg daily, Losartan 50 mg daily,Lisinopril 5 mg daily, lopressor 25 mg BID Continue current treatment Continue current medications Smoking cessation Further recommendation during hospital course Will follow up Plan and treatment discussed with Dr. Beckham Thank you Dr. Rain for the opportunity of taking care of Radha Friend - Date & Time Date: 07/23/18 Time: 12:00
[2018-07-23] MEDS: Pantoprazole 40 mg EC Tab PO SCH (14:25)
--- NOTE | 2018-07-23 16:16 | CARD ---
APPROVED REPORT Date of service: 07/23/2018 EKG Measurement Heart [id number] MD [id number] <Conclusion> Sinus tachycardia Inferior infarct, age Old.
--- NOTE | 2018-07-23 16:24 | HP ---
DATE OF EXAM: 07/23/2018 HISTORY OF PRESENT ILLNESS: The patient is 67 years old, who came to the emergency room because of increasing chest pressure, complains of shortness of breath, also had leg pain, difficulty walking small distance, gets short of breath upon walking small distance. The patient recently had angioplasty done on 05/15/2018. She has non-ST elevation ND and had circumflex angioplasty done. She was placed on Lipitor and simvastatin, but she could not tolerate statin. I gave her samples of , but she did not tolerate that. She has been on aspirin and Plavix. She states this morning when she woke up, she was very restless, had chest pain, so she decided to come to the emergency room for further evaluation, because her blood pressure was also going up and down and she was feeling as if she is having palpitation also. PAST MEDICAL HISTORY: She has past medical history significant for: 1. Hypertension. 2. Hyperlipidemia. 3. Active heavy smoker for many, many years. 4. Peptic ulcer disease, status post upper endoscopy. 5. Anxiety disorder. ALLERGIES: SHE IS ALLERGIC TO DOXYCYCLINE AND ERYTHROMYCIN . MEDICATIONS AT HOME: She is on Xanax 0.5 mg three times a day, Cozaar 50 mg at bedtime, 10 mg at bedtime, Mobic 15 mg daily, Singulair 10 mg daily, Protonix 40 mg daily, lisinopril 5 mg daily, metoprolol 25 mg twice a day, Plavix 75 mg daily, aspirin 81 mg daily. SOCIAL HISTORY: She lives with her brother. She was a heavy smoker and has cut down a lot, still smokes. PHYSICAL EXAMINATION GENERAL: She looks comfortable. VITAL SIGNS: She is afebrile, pulse 78, respirations 20, blood pressure 138/83. LUNGS: Bilateral decreased breath sounds at the bases. HEART: S1 and S2 audible. ABDOMEN: Soft, nontender. No rebound. No guarding. NEUROLOGIC: The patient is awake and alert, able to communicate. EXTREMITIES: Bilateral legs, no edema. LABORATORY DATA: WBC is 8.0, hemoglobin 13, hematocrit 40, platelets 312. PT 11.2, INR 0.99. Chemistry: Sodium 139, potassium 5.0, chloride 104, CO2 of 24, BUN 20, creatinine 0.8, blood sugar of 182. Troponin is 0.001. ASSESSMENT 1. Chest pain rule out underlying coronary ischemia. 2. Hypertension. 3. Hyperlipidemia. 4. History of coronary artery disease, status post angioplasty for circumflex that was done in 04/2018. PLAN: The patient will be placed in observation. We will follow up her serial cardiac enzymes. We will resume her medications and Dr. Beckham has been consulted. If the patient remained stable, no evidence of underlying ischemia, will be discharged. Zohra Rain MD
[2018-07-23 16:45] LABS: HDL CHOLESTEROL 38 mg/dL (29-60)
[2018-07-23 16:55] LABS: LDL CHOLESTEROL 142 mg/dL (0-129)
[2018-07-23 16:57] LABS: TROPONIN I < 0.01 ng/mL
--- NOTE | 2018-07-24 03:57 | CP.PCM.PN ---
Subjective - Date & Time of Evaluation Date of Evaluation: 07/24/18 Time of Evaluation: 03:54 - Subjective Subjective: S: Xanax 0.5 mg PO was ordered by medical information specialist for anxiety. Patient is asleep now. Nurse states that she refused to take Xanax. Medical record was reviewed. O:VSS. Not in acute distress. Obese person. LUNGS: Normal breathing pattern. A:Anxiety. P:Xanax 0.5 mg PO x1. Patient has refused to take it now. If she asks again, will give Xanax 0.5 mg PO once. Objective - Vital Signs/Intake and Output Vital Signs (last 24 hours): Temp Pulse Resp BP Pulse Ox 98.3 F 87 18 138/93 H 96 07/23/18 23:38 07/24/18 02:00 07/23/18 23:38 07/23/18 23:38 07/23/18 23:38 - Medications Medications: Current Medications Alprazolam (Xanax) 0.5 mg PO BID [facility]; Protocol Last Admin: 07/23/18 17:31 Dose: 0.5 mg Aspirin (Ecotrin) 81 mg PO DAILY [facility] Last Admin: 07/23/18 13:35 Dose: Not Given Clopidogrel Bisulfate (Plavix) 75 mg PO DAILY [facility] Last Admin: 07/23/18 14:23 Dose: 75 mg Cyclobenzaprine HCl (Flexeril) 10 mg PO HS [facility] Last Admin: 07/23/18 21:24 Dose: 10 mg Losartan Potassium (Cozaar) 50 mg PO HS [facility] Last Admin: 07/23/18 21:24 Dose: 50 mg Meloxicam (Mobic) 15 mg PO DAILY [facility] Last Admin: 07/23/18 14:22 Dose: 15 mg Metoprolol Tartrate (Lopressor) 25 mg PO BID [facility] Last Admin: 07/23/18 17:31 Dose: 25 mg Montelukast Sodium (Singulair) 10 mg PO DAILY [facility] Last Admin: 07/23/18 14:22 Dose: 10 mg Pantoprazole Sodium (Protonix Ec Tab) 40 mg PO ACB [facility] Last Admin: 07/23/18 14:25 Dose: Not Given - Labs Labs: 07/23/18 08:10 07/23/18 08:10 PT 11.2 SECONDS (9.4-12.5) 07/23/18 08:10 INR 0.99 07/23/18 08:10 APTT 31.0 Seconds (26.9-38.3) 07/23/18 08:10
--- NOTE | 2018-07-24 05:55 | CP.PCM.PN ---
Subjective - Date & Time of Evaluation Date of Evaluation: 07/24/18 Time of Evaluation: 06:20 - Subjective Subjective: Easily awaken, alert, no distress Reason for consultation:Cardiac evaluation of chest pain, history of coronary artery disease post stents,History of non-STEMI, coronary artery disease post stent (05/14/18),GERD, peptic ulcer disease,cholecystectomy, hypertension, spinal stenosis, current smoker 1 PPD. Seen and examined by me and Dr. Beckham Objective - Vital Signs/Intake and Output Vital Signs (last 24 hours): Temp Pulse Resp BP Pulse Ox 98.3 F 87 18 138/93 H 96 07/23/18 23:38 07/24/18 02:00 07/23/18 23:38 07/23/18 23:38 07/23/18 23:38 Intake and Output: 07/23/18 07/24/18 18:59 06:59 Intake Total 360 Balance 360 - Medications Medications: Current Medications Alprazolam (Xanax) 0.5 mg PO BID [facility]; Protocol Last Admin: 07/23/18 17:31 Dose: 0.5 mg Aspirin (Ecotrin) 81 mg PO DAILY [facility] Last Admin: 07/23/18 13:35 Dose: Not Given Clopidogrel Bisulfate (Plavix) 75 mg PO DAILY [facility] Last Admin: 07/23/18 14:23 Dose: 75 mg Cyclobenzaprine HCl (Flexeril) 10 mg PO HS [facility] Last Admin: 07/23/18 21:24 Dose: 10 mg Losartan Potassium (Cozaar) 50 mg PO HS [facility] Last Admin: 07/23/18 21:24 Dose: 50 mg Meloxicam (Mobic) 15 mg PO DAILY [facility] Last Admin: 07/23/18 14:22 Dose: 15 mg Metoprolol Tartrate (Lopressor) 25 mg PO BID [facility] Last Admin: 07/23/18 17:31 Dose: 25 mg Montelukast Sodium (Singulair) 10 mg PO DAILY [facility] Last Admin: 07/23/18 14:22 Dose: 10 mg Pantoprazole Sodium (Protonix Ec Tab) 40 mg PO ACB [facility] Last Admin: 07/23/18 14:25 Dose: Not Given - Labs Labs: 07/23/18 08:10 07/23/18 08:10 PT 11.2 SECONDS (9.4-12.5) 07/23/18 08:10 INR 0.99 07/23/18 08:10 APTT 31.0 Seconds (26.9-38.3) 07/23/18 08:10 - Constitutional Appears: Non-toxic, No Acute Distress - Head Exam Head Exam: NORMAL INSPECTION, NORMOCEPHALIC - Eye Exam Eye Exam: Normal appearance Pupil Exam: NORMAL ACCOMODATION - ENT Exam ENT Exam: Mucous Membranes Moist, Normal Exam - Respiratory Exam Respiratory Exam: Decreased Breath Sounds, Clear to Ausculation Bilateral, NORMAL BREATHING PATTERN - Cardiovascular Exam Cardiovascular Exam: REGULAR RHYTHM, +S1, +S2 - GI/Abdominal Exam GI & Abdominal Exam: Soft, Normal Bowel Sounds - Extremities Exam Extremities Exam: Full ROM, Normal Capillary Refill - Neurological Exam Neurological Exam: Alert, Awake, Oriented x3 - Psychiatric Exam Psychiatric exam: Normal Affect, Normal Mood - Skin Skin Exam: Dry, Normal Color, Warm Assessment and Plan - Assessment and Plan (Free Text) Assessment: A 67 year old female who came in to the ER due to nausea and vomiting and developed non radiating chest tightness since radiographer angiogram. History of non- STEMI, coronary artery disease post stent (05/14/18),GERD, peptic ulcer disease,cholecystectomy, hypertension, spinal stenosis, current smoker 1 PPD. Had a recent echo on 05/15/18 and showed LVEF 50 %, trace tricuspid regurgitation,RVSP 16 mmHg, trace pulmonic valve regurgitation, mild mitral regurgitation. Recent cardiac cath on 05/14/18 showed two vessel critical coronary disease, RCA totally occluded with collateral perfusion from Circumflex. OM1 90% stenosis (possible culprit of Non-STEMI). LVEF 55%. Succe ssful PTCA with DAYLIN of OM1 9circumflex). On Aspirin and Plavix for one year. Initial troponin 0.01, serial troponin. EKG- normal sinus tachycardia 104/min, no ischemia. Patient still smoking. Denies chest pain. Symptoms resolved. Anxious on Xanax. No further cardiac work up. Discontinue telemetry. Plan: Anxious radiographer angiogram, Xanax PRN given No distress Symptoms resolved On Protonix Blood pressure controlled on Plavix 75 mg daily, ASA 81 mg daily, Losartan 50 mg daily,Lisinopril 5 mg daily, Lopressor 25 mg BID Continue current treatment Continue current medications Smoking cessation Discharge planning, august discharge from cardiac standpoint No further cardiac work up Will follow up Plan and treatment discussed with Dr. Beckham
[2018-07-24 07:15] LABS: ALB/GLOB RATIO 1.2 (1.1-1.8); ALBUMIN 4.1 g/dL (3.0-4.8); ALT/SGPT 23 U/L (7-56); AST/SGOT 26 U/L (14-36); BLOOD UREA NITROGEN 18 mg/dL (7-21); CALCIUM 9.3 mg/dL (8.4-10.5); GFR NON-AFRICAN AMERICAN > 60
[2018-07-24] MEDS: Pantoprazole 40 mg EC Tab PO SCH (07:57)
--- NOTE | 2018-07-24 08:25 | CP.PCM.DIS ---
<Jesse Benitez - Last Filed: 07/24/18 11:09> Provider - Provider Date of Admission: 07/23/18 10:56 Attending physician: Zohra Rain MD Primary care physician: Zohra Rain MD Consults: 07/23/18 10:56 Cardiology Consult Stat Comment: Consulting Provider: Van Powers Consulting Physician: Van Powers Reason for Consult: chest pain, patient known to you Time Spent in preparation of Discharge (in minutes): 45 Hospital Course - Lab Results Lab Results: Most Recent Lab Values WBC 8.0 10^3/uL (4.5-11.0) D 07/23/18 08:10 RBC 4.45 10^6/uL (3.5-6.1) 07/23/18 08:10 Hgb 13.5 g/dL (12.0-16.0) 07/23/18 08:10 Hct 40.5 % (36.0-48.0) 07/23/18 08:10 MCV 91.0 fl (80.0-105.0) 07/23/18 08:10 MCH 30.3 pg (25.0-35.0) 07/23/18 08:10 MCHC 33.3 g/dl (31.0-37.0) 07/23/18 08:10 RDW 13.6 % (11.5-14.5) 07/23/18 08:10 Plt Count 312 10^3/uL (120.0-450.0) 07/23/18 08:10 MPV 9.1 fl (7.0-11.0) 07/23/18 08:10 Neut % (Auto) 66.9 % (50.0-68.0) 07/23/18 08:10 Lymph % (Auto) 24.8 % (22.0-35.0) 07/23/18 08:10 Mason % (Auto) 6.8 % (1.0-6.0) H 07/23/18 08:10 Eos % (Auto) 1.4 % (1.5-5.0) L 07/23/18 08:10 Baso % (Auto) 0.1 % (0.0-3.0) 07/23/18 08:10 Lymph # (Auto) 2.0 (1.2-3.4) 07/23/18 08:10 Mason # (Auto) 0.5 (0.1-0.6) 07/23/18 08:10 Eos # (Auto) 0.1 (0.0-0.7) 07/23/18 08:10 Baso # (Auto) 0.01 K/mm3 (0.0-2.0) 07/23/18 08:10 Absolute Neuts (auto) 5.33 (1.4-6.5) 07/23/18 08:10 PT 11.2 SECONDS (9.4-12.5) 07/23/18 08:10 INR 0.99 07/23/18 08:10 APTT 31.0 Seconds (26.9-38.3) 07/23/18 08:10 Sodium 137 mmol/L (132-148) 07/24/18 06:00 Potassium 4.3 mmol/L (3.6-5.0) 07/24/18 06:00 Chloride 105 mmol/L (98-107) 07/24/18 06:00 Carbon Dioxide 25 mmol/L (21-33) 07/24/18 06:00 Anion Gap 12 (10-20) 07/24/18 06:00 BUN 18 mg/dL (7-21) 07/24/18 06:00 Creatinine 0.8 mg/dl (0.7-1.2) 07/24/18 06:00 Est GFR ( Amer) > 60 07/24/18 06:00 Est GFR (Non-Af Amer) > 60 07/24/18 06:00 Random Glucose 143 mg/dL (70-110) H 07/24/18 06:00 Calcium 9.3 mg/dL (8.4-10.5) 07/24/18 06:00 Total Bilirubin 0.6 mg/dL (0.2-1.3) 07/24/18 06:00 AST 26 U/L (14-36) 07/24/18 06:00 ALT 23 U/L (7-56) 07/24/18 06:00 Alkaline Phosphatase 86 U/L (38-126) 07/24/18 06:00 Lactate Dehydrogenase 458 U/L (333-699) 07/23/18 08:10 Total Creatine Kinase 65 U/L (35-230) 07/23/18 08:10 Troponin I < 0.01 ng/mL 07/23/18 20:10 Total Protein 7.5 g/dL (5.8-8.3) 07/24/18 06:00 Albumin 4.1 g/dL (3.0-4.8) 07/24/18 06:00 Globulin 3.4 gm/dL 07/24/18 06:00 Albumin/Globulin Ratio 1.2 (1.1-1.8) 07/24/18 06:00 Triglycerides 304 mg/dL (35-160) H 07/23/18 16:20 Cholesterol 231 mg/dL (130-200) H 07/23/18 16:20 LDL Cholesterol Direct 142 mg/dL (0-129) H 07/23/18 16:20 HDL Cholesterol 38 mg/dL (29-60) 07/23/18 16:20 TSH 3rd Generation 2.23 mIU/mL (0.46-4.68) 07/24/18 06:00 - Hospital Course Hospital Course: Patient is a 67 year old female with a past medical history of hypertension, hyperlipidemia, peptic ulcer disease, anxiety disorder, CAD with stent placement, nstemi, spinal stenosis, and tobacco abuse who was admitted to the hospital for evaluation and treatment of chest pain. With the use of physical examinations, lab work, and imaging the patient was diagnosed with and treated for atypical chest pain and acute coronary syndrome was ruled out. During their hospital stay the patient was seen by cardiology (Dr. Briones) whose recommendations were both appreciated and utilized in the care for this patient. Patient was recommended to continue current medical management and follow up in the outpatient setting. During their hospital stay the patient underwent a cxr and EKG which reviewed, appreciated, and utilized in the management of the patients clinical course. Finding are listed below. Patient was treated with aspirin, plavix, losartan, lopressor, and protonix. Patient was found to have elevated TAG, cholesterol, and LDL. She cannot tolerate statins and will follow up with her PCP for lipid lowering medication. At this time the patient is medically stable for discharge. Patient understands and appreciates discharge plan. Patient instructed to follow up with primary care physicians and referrals within three to five days from discharge. Furthermore, the patient is instructed to take medications as prescribed and to return to emergency room for evaluation of new or worsening symptoms including but limited to intractable headache, fever, chills, dizziness, chest pain, shortness of breath, abdominal pain, nausea, vomiting, diarrhea, constipation, and urinary symptoms. This is a brief summary of the patients hospital course. Please see patient chart for full details. Studies During Visit: 07/23/2018 CXR: No significant pleural effusion identified, no pneumothorax apparent. No aortic atherosclerotic calcification present. Normal cardiac size. No pulmonary vascular congestion. Discharge Diagnoses: Hypertension, hyperlipidemia, peptic ulcer disease, anxiety disorder, CAD with stent placement, nstemi, spinal stenosis, and tobacco abuse Discharge Exam - Head Exam Head Exam: NORMAL INSPECTION, NORMOCEPHALIC Discharge Plan - Follow Up Plan Condition: GUARDED Disposition: HOME/ ROUTINE Instructions: Heart Healthy Diet, Low Cholesterol, Saturated Fat, and Trans Fat Diet , Angina (DC), Diabetic Meal Planning Additional Instructions: Patient Instructions: 1. Please take home medications as prescribed. You are not being discharged on new medications. 2. Follow up with your primary care physician and referrals within three to five days from discharge. 3. Please go to the nearest emergency room for evaluation of new or worsening symptoms including but limited to intractable headache, fever, chills, dizziness, chest pain, shortness of breath, abdominal pain, nausea, vomiting, diarrhea, constipation, and urinary symptoms. Diet; Heart healthy, low cholesterol and diabetic exchange menu: to be followed Patient states she refuses the flu and the pneumococcal vaccines. Referrals: Zohra Rain MD [Primary Care Provider] - Van Beckham MD [Staff Provider] - <Iron Hendrix S - Last Filed: 07/24/18 19:10> Provider - Provider Date of Admission: 07/23/18 10:56 Attending physician: Zohra Rain MD Primary care physician: Zohra Rain MD Consults: 07/23/18 10:56 Cardiology Consult Stat Comment: Consulting Provider: Van Powers Consulting Physician: Van Powers Reason for Consult: chest pain, patient known to you Hospital Course - Lab Results Lab Results: Most Recent Lab Values WBC 8.0 10^3/uL (4.5-11.0) D 07/23/18 08:10 RBC 4.45 10^6/uL (3.5-6.1) 07/23/18 08:10 Hgb 13.5 g/dL (12.0-16.0) 07/23/18 08:10 Hct 40.5 % (36.0-48.0) 07/23/18 08:10 MCV 91.0 fl (80.0-105.0) 07/23/18 08:10 MCH 30.3 pg (25.0-35.0) 07/23/18 08:10 MCHC 33.3 g/dl (31.0-37.0) 07/23/18 08:10 RDW 13.6 % (11.5-14.5) 07/23/18 08:10 Plt Count 312 10^3/uL (120.0-450.0) 07/23/18 08:10 MPV 9.1 fl (7.0-11.0) 07/23/18 08:10 Neut % (Auto) 66.9 % (50.0-68.0) 07/23/18 08:10 Lymph % (Auto) 24.8 % (22.0-35.0) 07/23/18 08:10 Mason % (Auto) 6.8 % (1.0-6.0) H 07/23/18 08:10 Eos % (Auto) 1.4 % (1.5-5.0) L 07/23/18 08:10 Baso % (Auto) 0.1 % (0.0-3.0) 07/23/18 08:10 Lymph # (Auto) 2.0 (1.2-3.4) 07/23/18 08:10 Mason # (Auto) 0.5 (0.1-0.6) 07/23/18 08:10 Eos # (Auto) 0.1 (0.0-0.7) 07/23/18 08:10 Baso # (Auto) 0.01 K/mm3 (0.0-2.0) 07/23/18 08:10 Absolute Neuts (auto) 5.33 (1.4-6.5) 07/23/18 08:10 PT 11.2 SECONDS (9.4-12.5) 07/23/18 08:10 INR 0.99 07/23/18 08:10 APTT 31.0 Seconds (26.9-38.3) 07/23/18 08:10 Sodium 137 mmol/L (132-148) 07/24/18 06:00 Potassium 4.3 mmol/L (3.6-5.0) 07/24/18 06:00 Chloride 105 mmol/L (98-107) 07/24/18 06:00 Carbon Dioxide 25 mmol/L (21-33) 07/24/18 06:00 Anion Gap 12 (10-20) 07/24/18 06:00 BUN 18 mg/dL (7-21) 07/24/18 06:00 Creatinine 0.8 mg/dl (0.7-1.2) 07/24/18 06:00 Est GFR ( Amer) > 60 07/24/18 06:00 Est GFR (Non-Af Amer) > 60 07/24/18 06:00 Random Glucose 143 mg/dL (70-110) H 07/24/18 06:00 Calcium 9.3 mg/dL (8.4-10.5) 07/24/18 06:00 Total Bilirubin 0.6 mg/dL (0.2-1.3) 07/24/18 06:00 AST 26 U/L (14-36) 07/24/18 06:00 ALT 23 U/L (7-56) 07/24/18 06:00 Alkaline Phosphatase 86 U/L (38-126) 07/24/18 06:00 Lactate Dehydrogenase 458 U/L (333-699) 07/23/18 08:10 Total Creatine Kinase 65 U/L (35-230) 07/23/18 08:10 Troponin I < 0.01 ng/mL 07/23/18 20:10 Total Protein 7.5 g/dL (5.8-8.3) 07/24/18 06:00 Albumin 4.1 g/dL (3.0-4.8) 07/24/18 06:00 Globulin 3.4 gm/dL 07/24/18 06:00 Albumin/Globulin Ratio 1.2 (1.1-1.8) 07/24/18 06:00 Triglycerides 304 mg/dL (35-160) H 07/23/18 16:20 Cholesterol 231 mg/dL (130-200) H 07/23/18 16:20 LDL Cholesterol Direct 142 mg/dL (0-129) H 07/23/18 16:20 HDL Cholesterol 38 mg/dL (29-60) 07/23/18 16:20 TSH 3rd Generation 2.23 mIU/mL (0.46-4.68) 07/24/18 06:00 - Hospital Course Hospital Course: Pt seen and examined by me. I have reviewed the note of the medical case manager and I agree with it. I have discussed the assessment and plan with the resident. I have reviewed the medications and the last labs.
[2018-07-24 10:46] VITALS: O2SAT 98
[2018-07-24 12:06] VITALS: BP 126/78; PULSE 77; RESP 19; TEMP 97.7
--- NOTE | 2018-07-25 00:43 | DS ---
HOSPITAL COURSE: The patient was seen and examined. I do agree with the note of the medical staff assistant. I was involved in the plan of care. This is coverage for Dr. Rain. The patient has hypertension and dyslipidemia. She has a history of coronary artery disease with stent. The patient is going to continue with aspirin for her coronary artery disease as well as Plavix. She is on losartan for her hypertension. She is on Lopressor for her coronary artery disease. She was seen by Dr. Beckham and he is cleared her for discharge. The patient is going to follow up with her primary doctor, Dr. Rain. Iron Hendrix MD
== END 2018-07-24 13:40 | disposition home or self-care (01) ==
LOC: ED 07:36 → ERH 10:56 → 2RNO 12:40
PROVIDERS: ADMIT Internal Medicine; ATTEND Internal Medicine
DX: I25.119 Atherosclerotic heart disease of native coronary artery with unspecified angina pectoris (principal); I10 Essential (primary) hypertension; E78.5 Hyperlipidemia, unspecified; F17.210 Nicotine dependence, cigarettes, uncomplicated; I25.2 Old myocardial infarction; K21.9 Gastro-esophageal reflux disease without esophagitis; I25.82 Chronic total occlusion of coronary artery; K27.9 Peptic ulcer, site unspecified, unspecified as acute or chronic, without hemorrhage or perforation; Z95.5 Presence of coronary angioplasty implant and graft; F41.9 Anxiety disorder, unspecified; M48.00 Spinal stenosis, site unspecified; Z79.02 Long term (current) use of antithrombotics/antiplatelets; Z79.82 Long term (current) use of aspirin; Z79.899 Other long term (current) drug therapy
CPT/HCPCS: 36415; 71045; 80053; 80061; 82550; 83615; 84443; 84484; 85025; 85610; 85730; 93005; 99285; G0378